=== PATIENT | male | born 1940 | race Caucasian/White ===

== ENCOUNTER 2016-04-23 16:16 | Inpatient (IN) | payer MEDICARE, OTHER ==
[~2016-04-23] VITALS: Ht 175.3 cm; Wt 77.1 kg
[~2016-04-23 16:16] MED LIST: BAYER ASPIRIN325 MG PO; BENICAR HCT 20-1 TA1 PO; BETAPACE 80 MG80 MG PO; COZAAR100 MG PO; FISH OIL 1,2001 CA1 PO; JANUVIA100 MG PO; LOVAZA1 G PO; LUNESTA3 MG PO; METAMUCIL1042 GM PO; MICARDIS80 MG PO; MIRALAX17 GM PO; MULTI-DAY VITAM1 TAB PO; NITROSTAT0.4 MG SL; ONGLYZA5 MG PO; PLAVIX75 MG PO; PRAVACHOL40 MG PO; PREVACID30 MG PO; PROTONIX40 MG PO; VALTREX1000 MG PO; VIAGRA100 MG PO; VITAMIN D5000 UNIT PO; ZANTAC150 MG PO; ZANTAC300 MG PO; [UNRECOGNIZED DRUG - OTHER] PO
--- NOTE | 2016-04-23 17:40 | NUR ---
RECEIVED TO ROOM 2217 VIA . ORIENTED TO ROOM AND CALL LIGHT SYSTEM. CALL LIGHT SYSTEM IN REACH. FAMILY IN ROOM.
[2016-04-23 17:46] VITALS: BP 177/107
[2016-04-23] MEDS ORDERED: NORVASC5 MG PO (17:53)
--- NOTE | 2016-04-23 18:09 | NUR ---
IV TO LEFT WRIST WITH 20 GA X1 STICK PER MARIANGEL JOYNER.
--- NOTE | 2016-04-23 18:30 | NUR ---
NS INITIATED @ 125 CC/HR VIA PUMP TO LEFT WRIST. DILAUDID VESSEL SCRAPPER INITIATED. BENADRYL SIVP. SCDs APPLIED TO BLE PER ORDER. CALL LIGHT IN REACH. WILL CONTINUE WITH PLAN OF CARE.
[2016-04-23 19:02] VITALS: Ht 175.3 cm; Wt 77.1 kg
[2016-04-23 19:03] LABS: ALBUMIN 2.5 g/dL (3.4-5.0); ALKALINE PHOSPHATASE 370 U/L (46-116); ALT (SGPT) 421 U/L (10-68); CALC OSMOLALITY 275 mosm/kg (275-300); CALCIUM 8.3 mg/dL (8.5-10.1); CHLORIDE - SERUM 99 mmol/L (98-107); CREATININE - SERUM 0.7 mg/dL (0.6-1.3); PROTEIN - SERUM 6.4 g/dL (6.4-8.2); SODIUM 135 mmol/L (136-145); UREA NITROGEN 20 mg/dL (7-18); eGFR NON AFRICAN AMERICAN > 90 mL/min (90-120)
[2016-04-23 19:11] LABS: GLUCOSE 154 mg/dL (74-106)
--- NOTE | 2016-04-23 19:26 | NUR ---
patient is a direct admit from home. patient is alert and oriented. patient denies pain but is itching. bed is low call light is in reach. assessment is in flowsheet. patient is accompanied by wift at bedside.
--- NOTE | 2016-04-23 19:38 | NUR ---
TO RADIOLOGY FOR CT SCAN VIA .
[2016-04-23 21:00] VITALS: BP 154/74
[2016-04-24 01:00] VITALS: BP 135/82
--- NOTE | 2016-04-24 04:15 | NUR ---
RESTING WITH EYES CLOSED, RESP WITH EASE, JAUNDICED IN COLOR, NO DISTRESS NOTED, SR'S UP , CL IN REACH
[2016-04-24 05:57] LABS: BASOPHILS 0.7 % (0.0-2.0); EOSINOPHILS 1.7 % (0-7); HEMATOCRIT 29.8 % (42.0-54.0); HEMOGLOBIN 10.3 g/dL (13.5-17.5); IMMATURE GRANULOCYTES 0.7 % (0-5); LYMPHOCYTES 34.4 % (15-50); MCH 30.6 pg (26.0-34.0); MCHC 34.6 g/dL (31.0-37.0); MCV 88.4 fL (80.0-100.0); MEAN PLATELET VOLUME 11.3 fL (7.4-10.4); MONOCYTES 16.2 % (2-11); NEUTROPHILS 46.3 % (40-80); RBC 3.37 10x6/uL (4.20-6.10); RDW 16.1 % (11.5-14.5); WBC 5.8 10x3/uL (4.8-10.8)
[2016-04-24 06:15] LABS: PLATELET COUNT 273 10x3/uL (130-400)
[2016-04-24 06:55] LABS: ALKALINE PHOSPHATASE 273 U/L (46-116); ALT (SGPT) 319 U/L (10-68); AMYLASE - SERUM 28 U/L (25-115); CALC OSMOLALITY 270 mosm/kg (275-300); CALCIUM 7.4 mg/dL (8.5-10.1); CARBON DIOXIDE 24.4 mmol/L (21.0-32.0); CHLORIDE - SERUM 102 mmol/L (98-107); CREATININE - SERUM 0.8 mg/dL (0.6-1.3); GLUCOSE 115 mg/dL (74-106); LIPASE 64 U/L (73-393); PRE-ALBUMIN 8.3 mg/dL (18.0-35.7); PROTEIN - SERUM 5.5 g/dL (6.4-8.2); SODIUM 134 mmol/L (136-145); UREA NITROGEN 17 mg/dL (7-18); eGFR NON AFRICAN AMERICAN > 90 mL/min (90-120)
[2016-04-24 06:58] LABS: ALBUMIN 1.8 g/dL (3.4-5.0)
--- NOTE | 2016-04-24 07:30 | NUR ---
REPORT RECEIVED FROM SEALANT MIXER NURSE. CALL LIGHT IN REACH.
--- NOTE | 2016-04-24 08:09 | NUR ---
ASSESSMENT COMPLETED. BENADRYL 25 MG SIVP PER C/O ITCHING. REFUSES SCDs. IN ROOM. CALL LIGHT IN REACH. WILL CONTINUE WITH PLAN OF CARE.
[2016-04-24 08:19] VITALS: BP 156/76
--- NOTE | 2016-04-24 09:06 | NUR ---
ATARAX AND SOTALOL PO WITH SIP OF WATER.
[2016-04-24 09:23] LABS: BILIRUBIN - DIRECT 7.31 mg/dL (0.00-0.30); BILIRUBIN - INDIRECT 1.79 mg/dL (0.00-1.00); BILIRUBIN - TOTAL 9.1 mg/dL (0.2-1.3); C-REACTIVE PROTEIN 1.4 mg/dL (0.0-0.9)
--- NOTE | 2016-04-24 10:10 | NUR ---
PEPCID 40 MG SIVP PER ORDER. FAMILY IN ROOM. CALL LIGHT IN REACH .
--- NOTE | 2016-04-24 10:11 | NUR ---
Patient Name: RAISA JOYNER Admission Status: ER Accout number: [id number] Admission Date: 04-23-2016 : 1940 Admission Diagnosis: Attending: DEREK Current LOS: 1 Anticipated DC Date: 04-29-2016 Planned Disposition: Home or Self Care Primary Insurance: MEDICARE A & B Discharge Planning Comments: CM MET WITH PATIENT REGARDING D/C NEEDS AND PLANS. PATIENT STATED HE LIVES WITH HIS SPOUSE (DEMOND) AND SHE WILL DRIVE HIM HOME AT DISCHARGE. PATIENT STATED THERE ARE 2 STEPS W/O RAILS TO ENTER HOME AND NO STAIRS INSIDE. PATIENT STATED HIS PCP IS DR. Larry SALMERON AND USES [facility]. PATIENT HAS NEVER HAD HOME HEALTH BEFORE. CM WILL CONTINUE TO FOLLOW PATIENT WITH D/C NEEDS AND PLANS. PCP DR. Larry SALMERON [facility] ON [facility] [phone] DEMOND (SPOUSE) [phone] Veneer Drier Feeder: Anni Omer Is the patient Alert and Oriented? Yes 0 * How many steps to enter\exit or inside your home? 2 W/O RAIL 0 * PCP DR. Larry SALMERON 0 * Pharmacy [facility] [phone] * Preadmission Environment Home with Family 0 * ADLs Independent 0 * Equipment None 0 * List name and contact numbers for known caregivers / representatives who currently or will assist patient after discharge: DEMOND () [phone] * Community resources currently utilized None 0 * Additional services required to return to the preadmission environment? Yes 0 * Can the patient safely return to the preadmission environment? Yes 0 * Has this patient been hospitalized within the prior 30 days at any hospital? No 0 Grand Total: 0
--- NOTE | 2016-04-24 10:14 | NUR ---
REPORT RECEIVED FROM INTERACTIVE PROJECT MANAGER NURSE. CALL LIGHT IN REACH.
[2016-04-24 10:35] LABS: ERYTHROCYTE SEDIMENTATION RATE 62 mm/hr (0-20)
--- NOTE | 2016-04-24 10:55 | NUR ---
TO MRI VIA WC.
--- NOTE | 2016-04-24 12:21 | NUR ---
CREAM DUMPER INCREASED TO 0.4 MG WITH NO LOCKOUT.
[2016-04-24 12:27] VITALS: BP 144/74
--- NOTE | 2016-04-24 13:52 | NUR ---
ATARAX 25 MG PO GIVEN EARLY D/T PATIENT CONSTANTLY ITCHING.
--- NOTE | 2016-04-24 15:40 | NUR ---
NO NEEDS VOICED AT THIS TIME. CALL LIGHT IN REACH.
[2016-04-24 16:18] VITALS: BP 140/65
--- NOTE | 2016-04-24 17:56 | NUR ---
BENADRYL 50 MG PO PER C/O ITCHING.
--- NOTE | 2016-04-24 18:19 | NUR ---
PATIENT IS CURRENTLY STANDING UP AT BEDSIDE. ACCOMPANIED BY SEVERAL FAMILY/FRIENDS. PATIENT IS ALERT AND ORIENTED. DENIES ANY NEEDS AT THIS TIME. BED IS IN THE LOWEST POSITION. IV PATIENT.
[2016-04-24 18:30] LABS: INR 0.9 (0.85-1.17)
[2016-04-24 20:00] VITALS: BP 150/76
--- NOTE | 2016-04-24 20:00 | NUR ---
ASSESSMENT PER FLOWSHEET. IV PATENT LEFT WRIST OF NS AT 125CC'S/HR SITE CLEAR TRANSFER STATION ATTENDANT OF DILAUDID IN USE WITH SETTINGS AT 0.4MG Q10MIN NO L/O. FAMILY MEMBERS AT BEDSIDE. DENIES NEEDS.
--- NOTE | 2016-04-24 21:30 | NUR ---
MEDS GIVEN PER MAR.
[2016-04-24 21:44] LABS: % SATURATION 50 % (15-55); IRON 117 ug/dl (35-150); TOTAL IRON BIND CAPACITY 233 ug/dl (260-445); UNSAT IRON BIND CAPACITY 116 ug/dl (150-375)
[2016-04-24 21:58] LABS: THYROID STIMULATING HORMONE 1.48 uIU/mL (0.36-3.74)
[2016-04-25] VITALS: BP 124/63
--- NOTE | 2016-04-25 00:32 | NUR ---
EYES CLOSED RESPIRATIONS WITH EASE AND UNLABORED. DENIES NEEDS.
--- NOTE | 2016-04-25 02:25 | NUR ---
EYES CLOSED RESPIRATIONS WITH EASE AND UNLABORED.
[2016-04-25 04:00] VITALS: BP 151/79
--- NOTE | 2016-04-25 04:19 | NUR ---
RESTING QUIETLY DENIES NEEDS.
[2016-04-25 05:28] LABS: BASOPHILS 0.7 % (0.0-2.0); EOSINOPHILS 1.5 % (0-7); HEMATOCRIT 30.5 % (42.0-54.0); HEMOGLOBIN 10.4 g/dL (13.5-17.5); IMMATURE GRANULOCYTES 0.5 % (0-5); LYMPHOCYTES 35.6 % (15-50); MCH 30.3 pg (26.0-34.0); MCHC 34.1 g/dL (31.0-37.0); MCV 88.9 fL (80.0-100.0); MONOCYTES 14.3 % (2-11); NEUTROPHILS 47.4 % (40-80); PLATELET COUNT 265 10x3/uL (130-400); RBC 3.43 10x6/uL (4.20-6.10); RDW 16.3 % (11.5-14.5); WBC 5.5 10x3/uL (4.8-10.8)
[2016-04-25 05:39] LABS: INR 0.96 (0.85-1.17); PROTIME 12.6 SECONDS (11.6-15.0)
[2016-04-25 06:11] LABS: ALKALINE PHOSPHATASE 301 U/L (46-116); ALT (SGPT) 308 U/L (10-68); AMYLASE - SERUM 34 U/L (25-115); BILIRUBIN - TOTAL 9.36 mg/dL (0.2-1.3); CALC OSMOLALITY 270 mosm/kg (275-300); CARBON DIOXIDE 24.9 mmol/L (21.0-32.0); CHLORIDE - SERUM 103 mmol/L (98-107); CREATININE - SERUM 0.9 mg/dL (0.6-1.3); GLUCOSE 99 mg/dL (74-106); LIPASE 73 U/L (73-393); MAGNESIUM - SERUM 1.7 mg/dL (1.8-2.4); POTASSIUM - SERUM 3.4 mmol/L (3.5-5.1); PROTEIN - SERUM 5.3 g/dL (6.4-8.2); SODIUM 135 mmol/L (136-145); UREA NITROGEN 14 mg/dL (7-18); eGFR NON AFRICAN AMERICAN 88 mL/min (90-120)
--- NOTE | 2016-04-25 07:15 | NUR ---
REPORT RECEIVED FROM JUNIOR GRAPHIC DESIGNER NURSE. CALL LIGHT IN REACH.
[2016-04-25 07:57] VITALS: BP 141/77
--- NOTE | 2016-04-25 08:20 | NUR ---
ASSESSMENT COMPLETED. REFUSES SCDs. AM MEDS ADMINISTERED. CALL LIGHT IN REACH. WILL CONTINUE WITH PLAN OF CARE.
[2016-04-25 09:15] LABS: CEA 3.3 ng/mL (0.0-4.7)
--- NOTE | 2016-04-25 10:20 | NUR ---
NO NEEDS VOICED AT THIS TIME. CALL LIGHT IN REACH.
[2016-04-25 12:17] LABS: HEPATITIS C ANTIBODY <0.1 (0.0-0.9)
--- NOTE | 2016-04-25 12:26 | NUR ---
QUESTRAN MIXED IN APPLE JUICE AND BENADRYL PO PER C/O ITCHING. CALL LIGHT IN REACH.
[2016-04-25 12:31] VITALS: BP 148/75
--- NOTE | 2016-04-25 12:59 | NUR ---
QUIET IN ROOM AT PRESENT DENIES ANY NEEDS AT THIS TIME AT BEDSIDE.
[2016-04-25] MEDS ORDERED: HYDROXYZINE HCL50 MG PO (15:24)
[2016-04-25] MEDS ORDERED: QUESTRAN LIG1 PACKET PO (15:24)
[2016-04-25 15:57] VITALS: BP 150/73
--- NOTE | 2016-04-25 16:17 | NUR ---
04/25/2016 16:17 DCP: Discharge Planning Patient Name: RAISA JOYNER Encounter No: [id number] : 1940 Primary Insurance: MEDICARE A & B Anticipated DC Date: 04-29-2016 Planned Disposition: Home or Self Care DCP follow-up note: DC order rec'd. Patient and family in agreement with discharge plan. No changes to plan. Case management will follow and assist as needed. Estelle Millard
--- NOTE | 2016-04-25 17:27 | NUR ---
IV DC'D WITH TIP INTACT
--- NOTE | 2016-04-25 18:40 | NUR ---
DC'D TO VEHICLE VIA WC WITH AND SON.
[2016-04-26 09:15] LABS: ANA REFLEX - DIRECT Negative (Negative)
[2016-05-01 10:20] LABS: CMV QUANT DNA PCR (PLASMA) Negative (Negative)
[2016-05-02 12:20] LABS: SMOOTH MUSCLE ABS (ACTIN) 9 Units (0-19)
[2016-05-02 13:16] LABS: EHRLICHIA CHAFF IGG Negative (Neg:<1:64); EHRLICHIA CHAFF IGM Negative (Neg:<1:20); HGE IGG TITER Negative (Neg:<1:64); HGE IGM TITER Negative (Neg:<1:20)
--- NOTE | 2016-06-19 10:17 | DS ---
PATIENT:RAISA JOYNER :[birth year] MEDICAL RECORD: [id number] DISCHARGE SUMMARY ADMISSION DATE: 04/23/16 DISCHARGE DATE: 04/25/16 DIAGNOSES: Hepatitis of unknown etiology. HOSPITAL COURSE: The patient was admitted. We were fearful the patient either had a common bile duct stone or had a pancreatic malignancy. A CT scan and MRCP were unrevealing with regard to any type of pancreatic mass. The patient did not have biliary ductal dilatation. Dr. Sandoval was asked to see the patient in consultation. She has ordered a number of lab tests. At the time of dismissal, the patient is still having significant itching. He is being dismissed home on Atarax as well as Questran Light. He is going to be following up with Dr. Sandoval in the office. On Friday, she will determine whether the patient requires liver biopsy or not. TRANSINT:[id number] Voice Confirmation ID: [id number] DOCUMENT ID: [id number] NICANOR MEZA MD at 1017 CC: KATE SALMERON MD [id number] DICTATION DATE: 04/25/16 1537 COATING AND BAKING OPERATOR: 04/25/160 DIS IN 04/25/16 [place] [id number] [place] [id number]
--- NOTE | 2016-06-19 10:17 | HP ---
PATIENT: RAISA JOYNER MEDICAL RECORD: [id number] ACCOUNT: [id number] LOCATION:D.[facility] : [birth year] ADMISSION DATE: 04/23/16 HISTORY AND PHYSICAL EXAMINATION Addendum CHIEF COMPLAINT: Itching. The patient has pruritus due to an elevated bilirubin. Upon arrival here, his bilirubin was 13. He reportedly has had a rise in his bilirubin over the past week. He had increasing pruritus as well. He has had some weight loss. No abdominal pain. I was concerned about pancreatic malignancy. Upon arrival here, we obtained a CT scan with IV and oral contrast with thin cuts through the pancreas. It revealed no biliary ductal dilatation, no evidence of a pancreatic mass. The pancreas was largely fatty replaced. The patient then underwent an MRCP. This revealed no pancreatic mass. No ductal dilatation. Dr. Sandoval was consulted. I have discussed this case personally with her. I personally reviewed the MRCP images. I personally reviewed the CT images and reviewed the CT images with Dr. Jose Hahn. Our current thoughts are that perhaps he passed a stone from his common bile duct; however, he was having no pain and he had a nontender abdomen. Alternatively, he may have either a viral, autoimmune or drug-induced hepatitis. Dr. Sandoval is working this up. If his bilirubin continues to drop, then we may consider dismissing him home tomorrow. This is a history and physical addendum. For the additional portion of the history and physical, including the past medical and surgical history, current medications, allergies and social history, please see the chart. REVIEW OF SYSTEMS: No nausea, no vomiting, no fever, no chills. Positive for pruritus, no abdominal pain. He has had some weight loss, no chest pain, no shortness of breath, no headache. Review of systems is negative other than as is described above. PHYSICAL EXAMINATION: GENERAL: The patient does not appear acutely ill. He does not appear chronically ill. VITAL SIGNS: Reviewed. HEAD: External ears appear normal. EYES: Extraocular movements are intact. Scleral icterus is present. NECK: Trachea is midline. CHEST: No intercostal retractions. PULMONARY: Nonlabored, no stridor. ABDOMEN: Nontender. EXTREMITIES: No peripheral cyanosis. INTEGUMENT: No rash. He does have jaundice. PSYCHIATRIC: Normal affect. NEUROLOGIC: Nonfocal, no lethargy. The patient answers questions appropriately, moves all extremities well. BACK: No thoracic kyphosis. LYMPHATICS: No lymphangitic streaking of the exposed extremities. IMPRESSION: Elevated bilirubin now dropping of uncertain etiology as elevation HISTORY AND PHYSICAL [id number] RAISA JOYNER of other LFTs, but not marked degree of the hyperbilirubinemia. PLAN: Further workup of his hepatic disease. This can be done as an outpatient if the patient's condition continues to improve. TRANSINT:[id number] Voice Confirmation ID: [id number] DOCUMENT ID: [id number] NICANOR MEZA MD at 1017 CC: KATE SALMERON MD [id number] DICTATION DATE: 04/25/16 1224 DIGITAL SALES DIRECTOR: 04/25/16 1329 DIS IN 04/25/16 [facility] [address] [place] [address]
== END 2016-04-25 18:40 | disposition home or self-care (01) | DRG 443 ==
LOC: D.ER 16:16 → EDSTATUS 17:01 → D.MS 17:08
PROVIDERS: Internal Medicine Gastroenterology; ADMIT Surgery
DX: K75.9 Inflammatory liver disease, unspecified (principal); D64.9 Anemia, unspecified; L29.9 Pruritus, unspecified

== ENCOUNTER → 2016-04-29 08:37 | Outpatient (CLI) | payer MEDICARE, OTHER ==
[~2016-04-29 08:37] MED LIST changes: +HYDROXYZINE HCL50 MG PO; +METAMUCIL PACKE1 PKT PO; +NORVASC5 MG PO; +QUESTRAN LIG1 PACKET PO
[2016-04-29 09:55] LABS: ALBUMIN 2.4 g/dL (3.4-5.0); BILIRUBIN - DIRECT 3.83 mg/dL (0.00-0.30); BILIRUBIN - INDIRECT 1.07 mg/dL (0.00-1.00); BILIRUBIN - TOTAL 4.9 mg/dL (0.2-1.3); PROTEIN - SERUM 7.3 g/dL (6.4-8.2)
== END | disposition home or self-care (01) ==
LOC: D.LAB 08:37
PROVIDERS: Internal Medicine Gastroenterology
DX: R79.89 Other specified abnormal findings of blood chemistry (principal)

== ENCOUNTER → 2016-05-06 09:48 | Outpatient (CLI) | payer MEDICARE, OTHER ==
[2016-05-06 10:46] LABS: ALBUMIN 2.5 g/dL (3.4-5.0); BILIRUBIN - DIRECT 2.22 mg/dL (0.00-0.30); BILIRUBIN - INDIRECT 0.4 mg/dL (0.00-1.00); BILIRUBIN - TOTAL 2.62 mg/dL (0.2-1.3); PROTEIN - SERUM 6.7 g/dL (6.4-8.2)
== END | disposition home or self-care (01) ==
LOC: D.LAB 09:48
PROVIDERS: Internal Medicine Gastroenterology
DX: K22.70 Barrett's esophagus without dysplasia (principal); R97.8 Other abnormal tumor markers; R74.8 Abnormal levels of other serum enzymes

== ENCOUNTER 2016-05-13 10:55 | Outpatient (CLI) | payer MEDICARE, OTHER ==
[~2016-05-13 10:55] MED LIST changes: -METAMUCIL PACKE1 PKT PO
[2016-05-13] MEDS ORDERED: METAMUCIL PACKE1 PKT PO (12:05)
--- NOTE | 2016-05-13 13:40 | NUR ---
1315-RECEIVED PT FROM GI LAB AWAKE AND ALERT VSS NO DISTRESS ON ROOM AIR, DENIES ANY N/V WILL CALL LIGHT IN REACH AND FAMILY AT BEDSIDE
[2016-05-13 14:12] LABS: ALBUMIN 3.1 g/dL (3.4-5.0); BILIRUBIN - DIRECT 1.45 mg/dL (0.00-0.30); BILIRUBIN - INDIRECT 0.45 mg/dL (0.00-1.00); BILIRUBIN - TOTAL 1.9 mg/dL (0.2-1.3); PROTEIN - SERUM 7.4 g/dL (6.4-8.2)
--- NOTE | 2016-05-13 14:23 | NUR ---
1415-PT TOLERATED TRAY WELL AND IV DISCONTINUED WITH CATHETER INTACT. PT GETTING DRESSED AND DOING WELL.
--- NOTE | 2016-05-13 14:33 | NUR ---
1430-DISCHARGE INSTRUCTIONS GIVEN AND WENT OVER WITH PATIENT. PT STATES UNDERSTANDING AND DENIES ANY NEEDS OR CONCERNS AT THIS TIME. PT DISCHARGED HOME IN STABLE CONDITION WITH A PERSCRIPTION FOR PANTOPRAZOLE. PT ESCORTED OUT IN STABLE CONDITION WITH WRITTEN INSTRUCTIONS IN HAND
--- NOTE | 2016-06-19 11:24 | OP ---
PATIENT NAME: RAISA JOYNER MEDICAL RECORD: [id number] :44 [facility] DATE: SURGEON: ADELA SANTANA MD DATE OF OPERATION: 05/13/2016 PROCEDURE: EGD with biopsy. SALVAGER HELPER: Adela Santana MD SCOPE: Olympus video gastroscope. MEDICATIONS: Per TIVA anesthesia. INDICATION FOR TIVA: Hypertension, intermittent atrial fibrillation, type 2 diabetes. The patient has had multiple stents placed in the past with Dr. Shabnam Becerra. Her medication for the procedure was 150 mg IV push of propofol and O2 4 liters. INDICATION FOR THE PROCEDURE: Gordon's esophagus, history of gastritis and epigastric pain. The patient states he is having no difficulties at this time with gastroesophageal reflux disease and this is a surveillance procedure to monitor Gordon's esophagus. FINDINGS: Informed consent was given. The patient was made comfortable with the above medications. After reaching an adequate level of sedation by slow IV push, the patient was placed on his left side. The endoscope was then advanced under direct visualization through the posterior pharyngeal area and advanced to the distal esophagus. On initial presentation, the gastroesophageal junction did appear to be normal, but on very close inspection, a minimal amount of inflammation was noted, which possibly could be short segment Gordon esophagus and biopsies were obtained. On entering the stomach, it should be noted that a very large hiatal hernia was seen and this was thoroughly explored with only mild inflammation present. With advancement of the scope to the antral area, only mild inflammation was noted. Biopsies were obtained. The duodenal bulb to the second portion had minimal scattered inflammation with bile present. Biopsies were taken. The scope was then withdrawn. IMPRESSION: 1. 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 2. Large hiatal hernia. 3. Mild antritis, biopsied. 4. Mild duodenitis, biopsied. PLAN: 1. Until we check thoroughly with the path report, we will continue pantoprazole at a dose of 40 mg p.o. every day. For reflux precautions, the patient should avoid chocolate, tomatoes, citrus, caffeine, fatty foods, peppermint, not eat late at night and sit up for a couple hours after meals. Of note, this hiatal hernia could be a problem in the future. Dr. Sandoval will follow the patient in her clinic and may decide to do an upper GI if she feels that the patient is having some symptomatic problems with refluxing. 2. Caution with anti-inflammatory drugs. Return to clinic in 3 weeks to Joycelyn OPERATIVE REPORT [id number] RAISA JOYNER and Dr. Sandoval's clinic. TRANSINT:[id number] Voice Confirmation ID: [id number] DOCUMENT ID: [id number] ADELA SANTANA MD at 1124 CC: JUAN SANDOVAL MD, KATE SALMERON MD and SHABNAM BECERRA [id number] DICTATION DATE: 05/13/16 1307 FORM LAYER: 05/13/16 1327 DEP CLI 05/13/[address] [address]
== END 2016-05-13 14:30 | disposition home or self-care (01) ==
LOC: D.OPS 10:55 → D.LAB 10:55 → D.OPS 14:30
PROVIDERS: Internal Medicine Gastroenterology
DX: K21.9 Gastro-esophageal reflux disease without esophagitis (principal); K44.9 Diaphragmatic hernia without obstruction or gangrene; K29.80 Duodenitis without bleeding

== ENCOUNTER → 2016-05-27 12:29 | Outpatient (CLI) | payer MEDICARE, OTHER ==
[~2016-05-27 12:29] MED LIST changes: +ASPIRIN81 MG PO; +METAMUCIL PACKE1 PKT PO
[2016-05-27 13:18] LABS: ALBUMIN 3.6 g/dL (3.4-5.0); BILIRUBIN - DIRECT 0.8 mg/dL (0.00-0.30); BILIRUBIN - INDIRECT 0.3 mg/dL (0.00-1.00); BILIRUBIN - TOTAL 1.1 mg/dL (0.2-1.3)
== END | disposition home or self-care (01) ==
LOC: D.LAB 10:00
PROVIDERS: Internal Medicine Gastroenterology
DX: R79.89 Other specified abnormal findings of blood chemistry (principal)

== ENCOUNTER → 2016-06-13 12:18 | Outpatient (CLI) | payer MEDICARE, OTHER ==
[2016-06-13 13:02] LABS: ALBUMIN 3.6 g/dL (3.4-5.0); BILIRUBIN - DIRECT 0.39 mg/dL (0.00-0.30); BILIRUBIN - INDIRECT 0.3 mg/dL (0.00-1.00); BILIRUBIN - TOTAL 0.69 mg/dL (0.2-1.3); PROTEIN - SERUM 7.7 g/dL (6.4-8.2)
== END | disposition home or self-care (01) ==
LOC: D.LAB 11:00
PROVIDERS: Internal Medicine Gastroenterology
DX: R94.5 Abnormal results of liver function studies (principal)

== ENCOUNTER 2016-07-15 06:36 | Day surgery (SDC) | payer MEDICARE, OTHER ==
[~2016-07-15] VITALS: Ht 175.3 cm; Wt 79.1 kg
[~2016-07-15 06:36] MED LIST changes: -ASPIRIN81 MG PO
[2016-07-15 07:29] VITALS: BP 131/74; Ht 175.3 cm; Wt 79.1 kg
[2016-07-15 07:33] LABS: BASOPHILS 0.9 % (0.0-2.0); EOSINOPHILS 4.4 % (0-7); HEMATOCRIT 41.4 % (42.0-54.0); HEMOGLOBIN 14.1 g/dL (13.5-17.5); IMMATURE GRANULOCYTES 0.2 % (0-5); LYMPHOCYTES 32.7 % (15-50); MCH 31.7 pg (26.0-34.0); MCHC 34.1 g/dL (31.0-37.0); MEAN PLATELET VOLUME 10.7 fL (7.4-10.4); MONOCYTES 14.9 % (2-11); NEUTROPHILS 46.9 % (40-80); RBC 4.45 10x6/uL (4.20-6.10); RDW 12.6 % (11.5-14.5); WBC 5.5 10x3/uL (4.8-10.8)
[2016-07-15 07:36] LABS: PLATELET COUNT 184 10x3/uL (130-400)
[2016-07-15 07:42] LABS: ANION GAP 12.1 mmol/L (8-16); CALCIUM 8.7 mg/dL (8.5-10.1); CARBON DIOXIDE 27.5 mmol/L (21.0-32.0); CREATININE - SERUM 1.1 mg/dL (0.6-1.3); POTASSIUM - SERUM 3.6 mmol/L (3.5-5.1)
--- NOTE | 2016-07-15 16:25 | NUR ---
1040 PT DRESSED, AWAKE & ALERT. GVIEN DISCAHRGE INSTRUCTIONS INCLUDING: MED REC & D/C INSTRCUTION SHEET POST ENDOSCOPIC PROCEDURES. PT VOICED UNDERSTANDING. TO PRIVATE CAR PER WHEELCHAIR BY VOLUNTEER. HOME WITH , DEMOND JOYNER. Ferny MARQUEZ R.N.
--- NOTE | 2016-07-16 12:03 | OP ---
PATIENT NAME: DRU JOYNER MEDICAL RECORD: [id number] :44 LOCATION:[facility] ADMISSION DATE: SURGEON: MARCIO AGARWAL DO DATE OF OPERATION: 07/15/2016 SCOPE: Olympus video pediatric colonoscope. MEDICATIONS: Propofol 150 mg IV per anesthesia. INDICATIONS FOR TIVA: Significant coronary artery disease with past history of coronary artery stated placement as well as hypertension and diabetes. INDICATIONS FOR PROCEDURE: Screening colonoscopy. FINDINGS: Informed consent was given. The patient was made comfortable with the above medication. After reaching an adequate level of sedation by slow IV push, the patient was placed on his left side. A digital rectal examination was performed and revealed a slightly enlarged prostate, but no nodules or abnormalities palpated on examination. Scope was then advanced under direct visualization through the rectum to the terminal ileum. Scope was then withdrawn slowly over 6 minutes total. The mucosa was normal throughout. There was a single diverticulum visualized in the descending colon. The remainder of the examination was normal. The scope was withdrawn from the patient. The patient tolerated the procedure well and there were no complications. The prep was good. IMPRESSION: Diverticulosis, mild severity. PLAN AND RECOMMENDATIONS: A repeat colonoscopy for colon cancer screening purposes could be considered at the age of 82. Otherwise, no further colonoscopies are necessary. Dru has had no polyps in his past to his knowledge and is clear on this examination making him low risk for further development of polyps and subsequent colon cancer. He also has significant comorbidities with his coronary artery disease making him a little high risk for sedation. TRANSINT:[id number] Voice Confirmation ID: [id number] DOCUMENT ID: [id number] MARCIO AGARWAL DO at 1203 CC: [id number] DICTATION DATE: 07/15/16 0841 BINDING FOLDER MACHINE: 07/15/16 0934 [facility] 07/15/16 [facility] [address] [place] [id number]
== END 2016-07-15 10:40 | disposition home or self-care (01) ==
LOC: D.OPS 06:36
PROVIDERS: Anesthesiology
DX: Z12.11 Encounter for screening for malignant neoplasm of colon (principal); K57.30 Diverticulosis of large intestine without perforation or abscess without bleeding; I25.10 Atherosclerotic heart disease of native coronary artery without angina pectoris; Z95.5 Presence of coronary angioplasty implant and graft; E11.9 Type 2 diabetes mellitus without complications; I10 Essential (primary) hypertension

== ENCOUNTER 2016-08-13 14:03 | Outpatient (CLI) | payer MEDICARE, OTHER ==
[~2016-08-13] VITALS: Ht 175.3 cm; Wt 77.7 kg
--- NOTE | ~2016-08-13 | HEMODYNAMI ---
PATIENT:RAISA JOYNER MEDICAL RECORD: [id number] : 44 LOCATION:[facility] D.2104 ADMISSION DATE: 08/13/16 Generatedon:08/14/20168:56 Patient name: RAISA JOYNER Patient #: [id number] : 1940 Date of study: 08/14/2016 Page: Of Hemodynamic Procedure Report Patient Data Patient Demographics Procedure consent was obtained First Name: RAISA Gender: Male Last Name: ANYA : 1940 [facility] Initial: LUKE Age: 76 year(s) Patient #: [id number] Race: SSN: [id number] Additional ID: [id number] Contact details Address: [address] [place] [address] State: [place] City: [place] Zip code: [address] Past Medical History Allergies Allergen Reaction Date Comments Reported Codeine 08/13/2016 Other allergy 08/13/2016 AMBIEN Admission Admission Data Admission Date: 08/13/2016 Admission Time: 14:03 Room #: D.2104 Lab Results Lab Result Date: 08/13/2016 Lab Result Time: 0:00 Biochemistry Name Units Result Min Max BUN mg/dl 19 --(----)*- 7 18 Creatinine mg/dl 1.2 --(---*)-- 0.6 1.3 CBC Name Units Result Min Max Hemoglobin g/dl 13.7 --(*---)-- 13.5 17.5 Procedure Procedure Types Cath Procedure PCI Procedure Coronary Stent Initial Miscellaneous Procedures Moderate Sedation up to 30 minutes Procedure Description Procedure Date Procedure Date: 08/14/2016 Procedure Start Time: 8:39 Procedure Staff Name Function Mary Lou Nuñez RT Monitor Jeffrey Rivera RN Nurse Dada Becerra MD Performing Physician Micheal Avilez RT Scrub Procedure Data Cath Procedure Fluoroscopy Diagnostic fluoroscopy Total fluoroscopy Time: 4.6 time: 4.6 min min Diagnostic fluoroscopy Total fluoroscopy dose: 252 dose: 252 mGy mGy Contrast Material Contrast Material Type Amount (ml) Isovue 300 42 Entry Location Entry Primary Successful Side Size Upsize Upsize Entry Closure Succes sful Closure Location (Fr) 1 (Fr) 2 (Fr) Remarks Device Remarks Femoral Right 7 Fr Exoseal artery Short Estimated blood loss: 10 ml Procedure Complications No complications Procedure Medications Medication Administration Route Dosage Oxygen 10 l/min Heparin Flush Bag added to field 2 bags (1000units/500ml NS) 0.9% NaCl I.V. 100 ml/hr Fentanyl I.V. 50 mcg Versed I.V. 1 mg Fentanyl I.V. 50 mcg Versed I.V. 1 mg Fentanyl I.V. 50 mcg Heparin Bolus I.V. 4000 units Hemodynamics Rest HGB: 13.7 (g/dl) Heart Rate: 50 (bpm) Snapshots Pre Cath Intra NCS Post Cath Vital Signs Time Heart Resp SPO2 NIBP Rhythm Pain Sedation Rate (ipm) (%) (mmHg) Status Level (bpm) 8:04:30 50 18 100 116/72(85) NSR 0 (11) 10(A) , No pain 8:08:42 50 18 100 113/68(86) NSR 0 (11) 10(A) , No pain 8:12:52 50 18 100 97/55(70) NSR 0 (11) 10(A) , No pain 8:16:58 54 16 97 95/60(74) NSR 0 (11) 10(A) , No pain 8:21:01 56 16 97 97/60(76) NSR 0 (11) 10(A) , No pain 8:25:07 57 16 98 90/55(69) NSR 0 (11) 10(A) , No pain 8:29:11 58 17 98 97/52(66) NSR 0 (11) 10(A) , No pain 8:33:17 58 18 98 92/56(71) NSR 0 (11) 10(A) , No pain 8:37:24 58 17 99 93/48(66) NSR 0 (11) 10(A) , No pain 8:41:32 56 16 98 88/47(66) NSR 0 (11) 9(A) , No pain 8:45:34 61 18 96 89/54(76) NSR 0 (11) 9(A) , No pain 8:49:36 63 19 96 93/55(71) NSR 0 (11) 9(A) , No pain 8:53:39 62 18 96 90/55(72) NSR 0 (11) 9(A) , No pain Medications Time Medication Route Dose Verified Delivered Reason Notes Effectiveness by by 8:03:49 Oxygen Simple 10 Jeffrey Jeffrey Per physician Mask l/min Miguel Rivera RN RN 8:03:59 Heparin Flush added 2 Jeffrey Jeffrey used for Bag to bags Miguel Rivera RN procedure (1000units/500ml field RN NS) 8:04:07 0.9% NaCl I.V. 100 Jeffrey Jeffrey Per physician ml/hr Miguel Rivera RN RN 8:35:18 Fentanyl I.V. 50 Jeffrey Jeffrey for sedation mcg Miguel Rivera RN RN 8:35:25 Versed I.V. 1 mg Jeffrey Jeffrey for sedation Miguel Rivera RN RN 8:38:29 Fentanyl I.V. 50 Jeffrey Jeffrey for sedation mcg Miguel Rivera RN RN 8:38:33 Versed I.V. 1 mg Jeffrey Jeffrey for sedation Miguel Rivera RN RN 8:41:45 Fentanyl I.V. 50 Jeffrey Jeffrey for sedation mcg Miguel Rivera RN RN 8:41:54 Heparin Bolus I.V. 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 Start room use. 7:45:39 Time tracking: Regular hours 7:45:43 Plan of Care:Hemodynamics will remain stable., Cardiac rhythm will remain stable., Comfort level will be maintained., Respiratory function will remain adequate., Patient/ family verbilizes understanding of procedure., Procedure tolerated without complication., Recovers from procedure without complications.. 7:55:24 Patient received from PCU to CCL 2 Alert and oriented. Tansferred to table in Supine position. 7:55:25 Correct patient and procedure confirmed by team. 7:55:25 Warm blankets applied, and ramos hugger turned on for patient comfort. 7:55:27 Signed procedure consent form obtained from patient. 7:55:28 ECG and BP/O2 sat monitors applied to patient. 8:03:18 Vital chart was started 8:03:49 Oxygen 10 l/min Simple Mask was administered by Jeffrey Rivera RN; Per physician; 8:03:59 Heparin Flush Bag (1000units/500ml NS) 2 bags added to field was administered by Jeffrey Rivera RN; used for procedure; 8:04:07 0.9% NaCl 100 ml/hr I.V. was administered by Jeffrey Rivera RN; Per physician; 8:05:23 Baseline sample Acquired. 8:05:29 Rhythm: sinus bradycardia 8:05:31 Full Disclosure recording started 8:05:39 H&P Date Dictated: 08/13/2016 Within 30 days and on chart., H&P Addendum completed by physician on day of procedure. (MUST COMPLETE FOR ALL OUTPATIENTS). 8:05:40 Pre-procedure instructions explained to patient. 8:05:41 Pre-op teaching completed and patient verbalized understanding. 8:05:43 Family in patients room. 8:05:45 Patient NPO since Midnight. 8:07:45 Is the patient allergic to Iodine/contrast media? No. 8:07:46 Is patient on blood thinner?Yes 8:08:45 ACC The patient was administered the following blood thiners within the last 24 hours: ACCAspirin, ACCPlavix 8:08:48 Patient diabetic? Yes. 8:09:35 If diabetic: On Metformin? No 8:09:38 Previous problem with sedation/anesthesia? No ? 8:09:41 Snore? Yes 8:09:42 Sleep apnea? No 8:09:44 Deviated septum? No 8:09:45 Opens mouth fully? Yes 8:09:46 Sticks out tongue? Yes 8:09:48 Airway obstruction? No ? 8:09:50 Dentures? No ? 8:09:53 Pre procedure: left dorsailis pedis pulse 2+ Normal; easily identifiable; not easily obliterated 8:09:58 Patient pain scale 0/10 ?. 8:10:06 IV patent on arrival in left hand with 0.9% NaCl at KVO. 8:10:44 Lab results completed and on chart. 8:10:49 Left groin area was prepped with chlora-prep and draped in sterile fashion 8:10:50 Sharps counted by scrub and verified by R.N. 8:10:50 Alarms reviewed by Amanuel Chong. 8:10:56 Use device set Femoral PCI 8:10:57 Acist Syringe opened to sterile field. 8:10:58 Bag Decanter opened to sterile field. 8:10:58 Acist Hand Control opened to sterile field. 8:10:59 Medline Cath Pack opened to sterile field. 8:11:00 St Wu 260cm J .035 wire opened to sterile field. 8:11:01 Acist Manifold opened to sterile field. 8:11:01 Merit BasixCompak Inflation Kit opened to sterile field. 8:11:03 Tegaderm 4 x 4 opened to sterile field. 8:11:23 Terumo 7Fr Window Rock Sheath opened to sterile field. 8:11:44 Humphreys Whisper J 300cm 0.014 guide wire opened to sterile field. 8:18:06 Zero performed for pressure channel P1 8:29:46 Zero performed for pressure channel P1 8:34:39 Final Timeout: patient, procedure, and site verified with staff and physician. All members of the team are in agreement. 8:34:41 Left groin site verified by team. 8:34:44 Physical assessment completed. ASA score P 2 - A patient with mild systemic disease as per Dada Becerra MD. 8:34:47 Sedation plan: IV Moderate Sedation Versed, Fentanyl 8:35:18 Fentanyl 50 mcg I.V. was administered by Jeffrey Rivera RN; for sedation; 8:35:25 Versed 1 mg I.V. was administered by Jeffrey Rivera RN; for sedation; 8:36:41 Medtronic Launcher 6Fr AR 2.0 SH guide catheter opened to sterile field. 8:38:29 Fentanyl 50 mcg I.V. was administered by Jeffrey Rivera RN; for sedation; 8:38:33 Versed 1 mg I.V. was administered by Jeffrey Rivera RN; for sedation; 8:38:41 Procedure started. 8:39:12 Local anesthetic to left femerol artery with Lidocaine 2% by Dada Becerra MD.INITIAL ACCESS ONLY 8:40:05 A 7 Fr Short sheath was inserted into the Right Femoral artery 8:40:25 6 Fr AR 2.0 SH guide catheter was inserted over the wire 8:41:38 WHISPER wire advanced. 8:41:45 Fentanyl 50 mcg I.V. was administered by Jeffrey Rivera RN; for sedation; 8:41:54 Heparin Bolus 4000 units I.V. was administered by Jeffrey Rivera RN; for anticoagulation; 8:42:53 Wire removed. unable to get back-up support 8:43:02 Carson Sci Choice PT Extra Support J 300cm .014 gu opened to sterile field. 8:43:16 The Medtronic Resolute 4.0 X 18 stent was advanced then removed because of failure to cross lesion 8:44:05 Choice PT ES wire advanced. 8:44:51 The Carson Sci [place] 3.5 X 15 balloon was advanced and then removed because of failure to cross lesion 8:44:54 Wire removed. 8:45:00 Guide Catheter removed. unable to get back-up support 8:45:22 Medtronic Launcher 7Fr HS II SH guide catheter opened to sterile field. 8:45:33 7 Fr HS II SH guide catheter was inserted over the wire 8:46:53 Choice PT ES wire advanced. 8:47:11 Inflation number: 1 A Carson Sci [place] 3.5 X 15 balloon was prepped and advanced across the Prox RCA, then inflated to 21 KHANG for 0:12 (min:sec). 8:47:28 Balloon removed over the wire. 8:49:37 Inflation Number: 2 A Medtronic Resolute 4.0 X 18 stent was prepped and advanced across the Prox RCA. The stent was deployed at 17 KHANG for 0:09 (min:sec). 8:49:52 Stent catheter was removed intact over wire. 8:49:53 Guide catheter removed. 8:49:53 Wire removed. 8:50:07 Cordis 7Fr Exoseal opened to sterile field. 8:50:17 Sheath removed intact; hemostasis achieved with Exoseal to the Right Femoral artery. 8:50:20 Procedure ended.(Physican Out) 8:51:23 Fluoroscopy time 04.60 minutes. 8:51:27 Fluoroscopy dose: 252 mGy 8:51:27 Flurop Dose total: 252 8:51:31 Contrast amount:Isovue 300 42ml. 8:51:32 Sharps counted by scrub and verified by R.N. 8:51:41 Insertion/operative site no bleeding no hematoma. 8:51:45 Post-op/insertion site Left Femoral artery dressed using a 4 x 4 and Tegaderm. 8:51:57 Post left femerol artery:stable, clean and dry 8:52:43 Post Procedure Pulses reassessed and unchanged 8:52:50 Post-procedure physical assessment completed. ASA score P 2 - A patient with mild systemic disease as per Dada Becerra MD. 8:52:52 Post procedure rhythm: unchanged. 8:52:54 Estimated blood loss: 10 ml 8:52:56 Patient needs reinforcement of post procedure teaching. 8:52:56 Post procedure instruction explained to patient.Patient verbalizes understanding. 8:53:06 Procedure type changed to Cath procedure, PCI procedure, Coronary Stent Initial, Miscellaneous Procedures, Moderate Sedation up to 30 minutes 8:53:12 Procedure Complication : No complications 8:53:16 See physician's report for complete and final results. 8:54:38 Full Disclosure recording stopped 8:56:04 Procedure and supply charges have been captured, reviewed, submitted and are correct. 8:56:10 Report given to PCU. 8:56:25 Patient transfered to PCU with Bed. 8:56:29 End room use (Document Last) Intervention Summary Intervention Notes Time ActionType Lesion and Equipment Action# Pressure Duration Attributes Used 8:43:16 Discard Medtronic Stent Resolute 4.0 X 18 stent 8:44:51 Discard Carson Balloon Sci [place] 3.5 X 15 balloon 8:47:11 Inflate Prox RCA Carson 1 21 00:12 balloon Sci [place] 3.5 X 15 balloon 8:49:37 Place stent Prox RCA Medtronic 2 17 00:09 Resolute 4.0 X 18 stent Device Usage Item Name Manufacture Quantity Catalog Number Hospital Part Current Mini [facility] Lot# / Charge Number Stock Stock Serial# Code Acist Acist 1 16745 [id number] [id number] [id number] 20 Syringe Medical Systems Inc Acist Hand Acist 1 37100 221653 672148 885150 5 Control Medical Systems Inc Bag Microtek 1 2001S 715933 54655 247453 5 Inspiron [employer] Inc. Medline Cardinal 1 [id number] 112792 63699 126758 [address] Wu St Wu 1 485322 084163 353172 866580 30 260cm J .035 wire Merit Merit 1 [id number] 430833 978549 106229 15 Westward Leaning Medical Inflation Kit Acist Acist 1 78526 088196 970486 013851 5 Mobincube Systems Inc Tegaderm 4 3M 1 [id number] 784892 956042 144486 5 x 4 Terumo 7Fr Terumo 1 [id number] 541655 504063 853256 5 Window Rock Sheath Humphreys Humphreys 1 [id number] 358149 206798 941459 5 Whisper J Vascular 300cm 0.014 guide wire Medtronic Medtronic 1 [id number] 788228 02001 437876 1 Launcher 6Fr AR 2.0 SH guide catheter Carson Sci Carson 1 [id number] 111379 132076 611255 5 Choice PT Scientific Extra Support J 300cm .014 gu Medtronic Medtronic 1 [id number] 798161 652232 0 [id number] Resolute 4.0 X 18 stent Carson Sci Carson 1 [id number] 822811 477317 222510 1 [id number] ForeUp 3.5 X 15 balloon Medtronic Medtronic 1 [id number] 524265 852474 319515 0 Launcher 7Fr HS II SH guide catheter Cordis 7Fr Cardinal 1 EX700 326250 184512 136257 5 [facility] Health Signature Audit [place] Stage Time Signature Unsigned Intra-Procedure 08/14/2016 Mary Lou 8:56:51 AM Counts RT(R) Signatures Monitor : Mary Lou Signature : Counts RT Date : Time : [facility] [address] [place] [address]
--- NOTE | ~2016-08-13 | HEMODYNAMI ---
PATIENT:RAISA JOYNER MEDICAL RECORD: [id number] : 44 LOCATION:DDAVID ADMISSION DATE: 08/13/16 Generatedon:08/13/201617:06 Patient name: RAISA JOYNER Patient #: [id number] : 1940 Date of study: 08/13/2016 Page: Of Hemodynamic Procedure Report Patient Data Patient Demographics Procedure consent was obtained First Name: RAISA Gender: Male Last Name: ANYA : 1940 [facility] Initial: LUKE Age: 76 year(s) Patient #: [id number] Race: SSN: [id number] Additional ID: [id number] Contact details Address: [address] [place] [address] State: [place] City: [place] Zip code: [address] Past Medical History Allergies Allergen Reaction Date Comments Reported Codeine 08/13/2016 Other allergy 08/13/2016 AMBIEN Admission Admission Data Admission Date: 08/13/2016 Admission Time: 14:03 Lab Results Lab Result Date: 08/13/2016 Lab Result Time: 0:00 Biochemistry Name Units Result Min Max BUN mg/dl 19 --(----)*- 7 18 Creatinine mg/dl 1.2 --(---*)-- 0.6 1.3 CBC Name Units Result Min Max Hemoglobin g/dl 13.7 --(*---)-- 13.5 17.5 Procedure Procedure Types Cath Procedure Diagnostic Procedure LHC LHC w/Coronaries PCI Procedure Coronary Stent Initial Miscellaneous Procedures Moderate Sedation up to 30 minutes Procedure Description Procedure Date Procedure Date: 08/13/2016 Procedure Start Time: 16:27 Procedure End Time: 16:49 Procedure Staff Name Function Jef Nicolas RT Monitor Jennifer Florentino RT Scrub Hailee Eagle RN Nurse Dada Becerra MD Performing Physician Ramos Go RT Monitor Indication Angina Procedure Data Cath Procedure Fluoroscopy Diagnostic fluoroscopy Total fluoroscopy Time: 4.5 time: 4.5 min min Diagnostic fluoroscopy Total fluoroscopy dose: 454 dose: 454 mGy mGy Contrast Material Contrast Material Type Amount (ml) Isovue 300 79 Entry Location Entry Primary Successful Side Size Upsize Upsize Entry Closure Succes sful Closure Location (Fr) 1 (Fr) 2 (Fr) Remarks Device Remarks Femoral Right 5 Fr 6 Fr Exoseal artery Short Diagnostic catheters Device Type Used For End Catheter Placement Cordis 5Fr Pigtail LV Angiography Catheter (MP) Cordis 5Fr JL 4.0 Left Coronary Catheter (MP) Angiography Cordis 5Fr 3DRC Catheter Right Coronary (MP) Angiography Procedure Complications No complications Procedure Medications Medication Administration Route Dosage Oxygen NC 2 l/min Lidocaine 2% added to field 20 Heparin Flush Bag added to field 2 bags (1000units/500ml NS) 0.9% NaCl I.V. 100 ml/hr Versed I.V. 1 mg Fentanyl I.V. 50 mcg Versed I.V. 1 mg Fentanyl I.V. 50 mcg Heparin Bolus I.V. 5000 units Integrilin (Bolus I.V. 7.3 ml 2mg/ml) Integrilin (Bolus 7.3 ml 2mg/ml) Fentanyl I.V. 50 mcg Fentanyl I.V. 50 mcg Plavix P.O. 600 mg Hemodynamics Rest HGB: 13.7 (g/dl) Heart Rate: 55 (bpm) Snapshots Pre Cath Intra NCS Post Cath Vital Signs Time Heart Resp SPO2 etCO2 [id number] NIBP (mmHg) Rhythm Pain Status Ruth tion Rate (ipm) (%) (mmHg) (mmHg) Level (bpm) 16:16:12 55 18 100 0 0 123/75(105) NSR 4 (11) , 10(A ) Distressing 16:20:24 53 21 97 0 0 110/68(81) NSR 4 (11) , 10(A ) Distressing 16:24:34 54 19 94 0 0 106/62(75) NSR 4 (11) , 10(A ) Distressing 16:28:42 53 18 98 0 0 99/65(86) NSR 0 (11) , No 9(A) pain 16:32:48 56 15 95 0 0 95/60(78) NSR 0 (11) , No 9(A) pain 16:36:53 59 17 94 0 0 93/59(80) NSR 0 (11) , No 9(A) pain 16:40:57 64 16 96 0 0 94/59(80) NSR 0 (11) , No 9(A) pain 16:45:03 58 16 98 0 0 104/58(80) NSR 0 (11) , No 9(A) pain 16:49:13 56 16 98 0 0 99/55(80) NSR 0 (11) , No 10(A ) pain 17:02:40 55 17 100 0 0 115/74(87) NSR 0 (11) , No 10(A ) pain Medications Time Medication Route Dose Verified Delivered Reason Notes Effectiveness by by 16:15:59 Oxygen NC 2 Dada Buffie used for l/min Mariam Eagle RN procedure 16:16:07 Lidocaine 2% added 20ml Dada Buffie used for to vial Mariam Eagle RN procedure field 16:16:13 Heparin Flush added 2 Dada Buffie used for Bag to bags Mariam Eagle RN procedure (1000units/500ml field NS) 16:16:25 0.9% NaCl I.V. 100 Adda Buffie Per physician ml/hr Mariam Eagle RN 16:23:31 Versed I.V. 1 mg Dada Buffie for sedation Mariam Eagle RN 16:23:37 Fentanyl I.V. 50 Dada Buffie for sedation mcg Mariam Eagle RN 16:28:23 Versed I.V. 1 mg Dada Buffie for sedation Mariam Eagle RN 16:28:27 Fentanyl I.V. 50 Dada Buffie for sedation mcg Mariam Eagle RN 16:31:46 Fentanyl I.V. 50 Dada Buffie for sedation mcg Mariam Eagle RN 16:32:44 Heparin Bolus I.V. 5000 Dada Buffie for Verifi ed units Mariam Eagle RN anticoagulation with dr becerra 16:34:33 Integrilin I.V. 7.3 Dada Stephen for Wasted (Bolus 2mg/ml) ml Mariam Eagle RN antiplatelet 2.7 ml therapy of vial 16:37:01 Integrilin IC 7.3 Dada Dada for Wasted (Bolus 2mg/ml) ml Mariam Becerra MD antiplatelet 2.7 ml therapy of vial 16:40:48 Fentanyl I.V. 50 Dada Buffie for sedation mcg Tauth MD Eagle RN 16:47:05 Plavix P.O. 600 Dada Stephen for mg Mariam Eagle RN antiplatelet therapy Procedure Log Time Note 15:55:13 Informed consent obtained and on chart 15:55:20 Diagnostic Cath Status : Elective 15:56:52 Hailee Eagle RN sent for patient. Start room use. 15:56:53 Time tracking: Regular hours 15:56:59 Plan of Care:Hemodynamics will remain stable., Cardiac rhythm will remain stable., Comfort level will be maintained., Respiratory function will remain adequate., Patient/ family verbilizes understanding of procedure., Procedure tolerated without complication., Recovers from procedure without complications.. 15:58:31 Indication : Angina 16:07:29 Patient received from Pre/Post Procedure Room to CCL 1 Alert and oriented. Tansferred to table in Supine position. 16:07:30 Warm blankets applied, and ramos hugger turned on for patient comfort. 16:07:31 Correct patient and procedure confirmed by team. 16:07:32 ECG and BP/O2 sat monitors applied to patient. 16:15:08 Vital chart was started 16:15:08 Baseline sample Acquired. 16:15:11 Rhythm: sinus rhythm 16:15:13 Full Disclosure recording started 16:15:59 Oxygen 2 l/min NC was administered by Hailee Eagle RN; used for procedure; 16:16:07 Lidocaine 2% 20ml vial added to field was administered by Hailee Eagle RN; used for procedure; 16:16:13 Heparin Flush Bag (1000units/500ml NS) 2 bags added to field was administered by Hailee Eagle RN; used for procedure; 16:16:25 0.9% NaCl 100 ml/hr I.V. was administered by Hailee Eagle RN; Per physician; 16:16:30 H&P Date Dictated: 08/13/2016 Within 30 days and on chart., H&P Addendum completed by physician on day of procedure. (MUST COMPLETE FOR ALL OUTPATIENTS). 16:16:31 Pre-op teaching completed and patient verbalized understanding. 16:16:31 Pre-procedure instructions explained to patient. 16:16:33 Family in patients room. 16:16:35 Patient NPO since Midnight. 16:16:46 Patient allergic to Codeine 16:16:58 Patient allergic to Other allergyAMBIEN 16:17:01 Is the patient allergic to Iodine/contrast media? No. 16:17:07 Is patient on blood thinner?No 16:17:08 Patient diabetic? Yes. 16:17:10 If diabetic: On Metformin? No 16:17:12 ----Pre-sedation anethsthesia assessment.---- 16:17:14 Previous problem with sedation/anesthesia? No ? 16:17:20 Snore? Yes 16:17:22 Sleep apnea? No 16:17:24 Deviated septum? No 16:17:25 Opens mouth fully? Yes 16:17:27 Sticks out tongue? Yes 16:17:34 Airway obstruction? No ? 16:17:37 Dentures? No ? 16:18:11 Pre procedure: right dorsailis pedis pulse 1+ Palpable, but thready & weak; easily obliterated 16:19:42 Patient pain scale 0/10 ?. 16:19:53 Patient pain scale 4/10 CP. 16:20:02 IV patent on arrival in right antecubital with 0.9% NaCl at 10ml/hr. 16:22:05 Lab Result : Hemoglobin 13.7 g/dl 16:22:05 Lab Result : Creatinine 1.2 mg/dl 16:22:05 Lab Result : BUN 19 mg/dl 16:22:13 Lab results completed and on chart. 16:22:16 Right groin area was prepped with chlora-prep and draped in sterile fashion 16:22:17 Alarms reviewed by R. N. 16:22:18 --------ALL STOP TIME OUT------ 16:22:18 Sharps counted by scrub and verified by R.N. 16:22:19 Final Timeout: patient, procedure, and site verified with staff and physician. All members of the team are in agreement. 16:22:20 Right groin site verified by team. 16:22:24 Physical assessment completed. ASA score P 2 - A patient with mild systemic disease as per Dada Becerra MD. 16:22:28 Sedation plan: IV Moderate Sedation Versed, Fentanyl 16:23:31 Versed 1 mg I.V. was administered by Hailee Eagle RN; for sedation; 16:23:37 Fentanyl 50 mcg I.V. was administered by Hailee Eagle RN; for sedation; 16:23:44 Zero performed for pressure channel P1 16:26:34 Use device set Femoral Dx 16:26:35 Bag Decanter opened to sterile field. 16:26:35 Acist Syringe opened to sterile field. 16:26:36 St Wu 260cm J .035 wire opened to sterile field. 16:26:36 Terumo 5Fr [place] Sheath opened to sterile field. 16:26:36 Medline Cath Pack opened to sterile field. 16::38 Diagnostic Infinity 5Fr Multipack catheter opened to sterile field. 16::38 Acist Manifold opened to sterile field. 16:26:38 Acist Hand Control opened to sterile field. 16:26:39 Tegaderm 4 x 4 opened to sterile field. 16:26:42 Procedure started. 16:27:15 Local anesthetic to right femoral artery with Lidocaine 2% by Dada Becerra MD.INITIAL ACCESS ONLY 16:27:23 A 5 Fr sheath was inserted into the Right Femoral artery 16:28:23 Versed 1 mg I.V. was administered by Hailee Eagle RN; for sedation; 16:28:27 Fentanyl 50 mcg I.V. was administered by Hailee Eagle RN; for sedation; 16:28:48 A Cordis 5Fr Pigtail Catheter (MP) was advanced over the wire and used for LV Angiography. 16:28:52 LV angiography performed. 16:28:59 EF : 50 % 16:29:01 Catheter removed. 16:29:09 A Cordis 5Fr JL 4.0 Catheter (MP) was advanced over the wire and used for Left Coronary Angiography. 16:29:24 LCA angiography performed. 16:29:56 Catheter removed. 16:30:15 Humphreys Whisper J 300cm 0.014 guide wire opened to sterile field. 16:30:15 Surfly BasixCompak Inflation Kit opened to sterile field. 16:30:15 Terumo 6Fr [place] Sheath opened to sterile field. 16:30:20 A Cordis 5Fr 3DRC Catheter (MP) was advanced over the wire and used for Right Coronary Angiography. 16:30:23 RCA angiography performed. 16:31:46 Fentanyl 50 mcg I.V. was administered by Hailee Eagle RN; for sedation; 16:32:44 Heparin Bolus 5000 units I.V. was administered by Hailee Eagle RN; for anticoagulation; Verified with dr becerra 16:33:03 Catheter removed. 16:33:20 ACC PCI Site: mLAD has 100% stenosis. 16:33:23 ACC Pre-intervention STARLA Flow is 3. 16:33:30 Sheath upsized to a 6 Fr Short. 16:34:27 Cordis 6FR XBLAD 3.5 guide catheter opened to sterile field. 16:34:29 Cordis 6FR XBLAD 4.0 guide catheter opened to sterile field. 16:34:33 Integrilin (Bolus 2mg/ml) 7.3 ml I.V. was administered by Hailee Eagle RN; for antiplatelet therapy; Wasted 2.7 ml of vial 16:34:37 6 Fr XBLAD 3.5 guide catheter was inserted over the wire 16:34:40 Guide catheter removed. 16:34:46 6 Fr XBLAD 4 guide catheter was inserted over the wire 16:35:03 WHISPER wire advanced. 16:36:34 Inflation number: 1 A [place] Sci Duchesne 2.5 X 20 balloon was prepped and advanced across the Mid LAD, then inflated to 9 KHANG for 0:11 (min:sec). 16:36:53 Inflation number: 2 The [place] Sci Duchesne 2.5 X 20 balloon was reinflated across the Mid LAD, to 9 KHANG for 0:11 (min:sec). 16:36:57 Balloon removed over the wire. 16:37:01 Integrilin (Bolus 2mg/ml) 7.3 ml IC was administered by Dada Becerra MD; for antiplatelet therapy; Wasted 2.7 ml of vial 16:39:33 Inflation Number: 3 A Medtronic Resolute 2.5 X 22 stent was prepped and advanced across the Mid LAD. The stent was deployed at 19 KHANG for 0:10 (min:sec). 16:39:47 Inflation number: 4 The stent balloon was then re-inflated across the Mid LAD to 23 KHANG for 0:12 (min:sec). 16:40:41 ACC Post-intervention STARLA Flow is 3. 16:40:42 Stent catheter was removed intact over wire. 16:40:43 Wire removed. 16:40:44 Guide catheter removed. 16:40:48 Fentanyl 50 mcg I.V. was administered by Hailee Eagle RN; for sedation; 16:40:56 Sheath removed intact; hemostasis achieved with Exoseal to the Right Femoral artery. 16:41:03 Cordis 6Fr Exoseal opened to sterile field. 16:41:06 Procedure ended.(Physican Out) 16:41:11 Contrast amount:Isovue 300 79ml. 16:41:27 Fluoroscopy time 04.50 minutes. 16:41:32 Fluoroscopy dose: 454 mGy 16:41:32 Flurop Dose total: 454 16:41:34 Sharps counted by scrub and verified by R.N. 16:41:35 Insertion/operative site no bleeding no hematoma. 16:41:38 Post-op/insertion site Right Femoral artery dressed using a 4 x 4 and Tegaderm. 16:41:41 Post right femoral artery:stable 16:41:43 Post Procedure Pulses reassessed and unchanged 16:41:47 Post procedure: right dorsailis pedis pulse 2+ Normal; easily identifiable; not easily obliterated. 16:41:50 Post procedure rhythm: sinus rhythm 16:41:52 Post procedure instruction explained to patient.Patient verbalizes understanding. 16:42:06 Procedure type changed to Cath procedure, Diagnostic procedure, LHC, LHC w/Coronaries, PCI procedure, Coronary Stent Initial, Miscellaneous Procedures, Moderate Sedation up to 30 minutes 16:47:05 Plavix 600 mg P.O. was administered by Hailee Eagle RN; for antiplatelet therapy; 16:49:00 Procedure and supply charges have been captured, reviewed, submitted and are correct. 16:49:12 Procedure Complication : No complications 16:49:14 See physician's report for complete and final results. 16:49:14 Vital chart was stopped 16:49:16 Report given to PCU. 16:49:19 Patient transfered to PCU with Bed. 16:49:21 Full Disclosure recording stopped 16:49:21 Procedure ended. 16:49:24 End room use (Document Last) Intervention Summary Intervention Notes Time ActionType Lesion and Equipment Action# Pressure Duration Attributes Used 16:36:34 Inflate Mid LAD [place] 1 9 00:11 balloon Sci Duchesne 2.5 X 20 balloon 16:36:53 Reinflate Mid LAD [place] 2 9 00:11 balloon Sci Duchesne 2.5 X 20 balloon 16:39:33 Place stent Mid LAD Medtronic 3 19 00:10 Resolute 2.5 X 22 stent 16:39:47 Reinflate Mid LAD Medtronic 4 23 00:12 stent Resolute balloon 2.5 X 22 stent Device Usage Item Name Manufacture Quantity Catalog Number Hospital Part Current Mini mal Lot# / Charge Number Stock Stock Serial# Code Acist Acist 1 [id number] 875708 697104 20 Syringe Medical Systems Inc Bag Microtek 1 2002S 788196 48856 305872 5 Boxfish Inc. Medline Cardinal 1 [id number] 620271 04552 868920 5 Cath Pack Health Terumo 5Fr Terumo 1 [id number] 870166 878324 589610 [address] [address] Wu St Wu 1 356454 527487 748690 285511 30 260cm J .035 wire Acist Hand Acist 1 54209 139437 617143 357633 5 TranZfinity Medical Systems Inc Acist Acist 1 00659 333049 130659 881927 5 QFPay Medical Systems Inc Diagnostic Cardinal 1 [id number] 638291 80800 779044 30 Infinity Health 5Fr Multipack catheter Tegaderm 4 3M 1 1626W 016850 842966 139929 5 x 4 Cordis 5Fr Cardinal 1 806027 5 Pigtail Health Catheter (MP) Cordis 5Fr Cardinal 1 823420 5 JL 4.0 Health Catheter (MP) Terumo 6Fr Terumo 1 [id number] 481752 835395 277632 40 [place] Sheath Merit Merit 1 VZ4886 125105 435436 933914 15 BasixCompak Medical Inflation Kit Humphreys Humphreys 1 [id number] 885797 714746 010584 5 Whisper J Vascular 300cm 0.014 guide wire Cordis 5Fr Cardinal 1 356657 5 3DRC Health Catheter (MP) Cordis 6FR Cardinal 1 [id number] 473805 063557 439142 10 XBLAD 3.5 Health guide catheter Cordis 6FR Cardinal 1 [id number] 586242 332951 436641 3 XBLAD 4.0 Health guide catheter [place] Sci [place] 1 [id number] 649140 233004 141345 1 [id number] Duchesne Scientific 2.5 X 20 balloon Medtronic Medtronic 1 [id number] 297769 607420 5 [id number] Resolute 2.5 X 22 stent Cordis 6Fr Cardinal 1 EX600 208995 226375 348616 10 [facility] Health Signature Audit [place] Stage Time Signature Unsigned Intra-Procedure 08/13/2016 Ramos Go 5:05:59 PM RT(R) Signatures Monitor : Jef Nicolas RT Signature : Date : Time : Monitor : Ramos Go RT Signature : Date : Time : [facility] [address] [place] [address]
[2016-08-13 14:28] VITALS: BP 133/75; BMI 25.9
[2016-08-13 15:19] LABS: BASOPHILS 0.5 % (0-2); EOSINOPHILS 3.7 % (0-7); HEMATOCRIT 40.8 % (42.0-54.0); HEMOGLOBIN 13.7 g/dL (13.5-17.5); IMMATURE GRANULOCYTES 0.2 % (0-5); LYMPHOCYTES 35.5 % (15-50); MCH 31.4 pg (26.0-34.0); MCHC 33.6 g/dL (31.0-37.0); MCV 93.4 fL (80.0-100.0); MEAN PLATELET VOLUME 11.3 fL (7.4-10.4); MONOCYTES 12.3 % (2-11); NEUTROPHILS 47.8 % (40-80); PLATELET COUNT 168 10x3/uL (130-400); RBC 4.37 10x6/uL (4.20-6.10); RDW 12.6 % (11.5-14.5); WBC 6.5 10x3/uL (4.8-10.8)
[2016-08-13 15:40] LABS: ANION GAP 12.1 mmol/L (8-16); CALCIUM 8.8 mg/dL (8.5-10.1); CARBON DIOXIDE 27.8 mmol/L (21.0-32.0); CREATININE - SERUM 1.2 mg/dL (0.6-1.3); POTASSIUM - SERUM 3.9 mmol/L (3.5-5.1)
--- NOTE | 2016-08-13 17:29 | NUR ---
RECEIVED PATIENT FROM MECHANICAL DETAILER AT THIS TIME. PATIENT ALERT/ORIENTED. CALL LIGHT PLACED WITHIN REACH. RIGHT GROIN DRESSING CLEAN, DRY AND INTACT. NO HEMATOMA FORMATION TO RIGHT GROIN. PERIPHERAL PULSES PATENT. 20 GAUGE TO RIGHT AC WITH NS AT 100ML/HOUR INFUSING. NO DISTRESS. PATIENTS AT BEDSIDE.
[2016-08-13 18:04] VITALS: BP 119/76; BMI 25.3
[2016-08-13 18:17] VITALS: BP 119/76; Ht 175.3 cm; Wt 77.7 kg
[2016-08-13 20:00] VITALS: BP 126/68
--- NOTE | 2016-08-13 21:01 | NUR ---
PT AWAKE, ALERT, ORIENTED, LYING FLAT ORDERED. PT IS AWARE THAT HE CAN AMBULATE AFTER 21:00. RIGHT GROIN DRESSING CLEAN, DRY AND INTACT, NO EVIDENCE OF HEMATOMA, BLEEDING OR BRUISING AT THIS TIME. AT BEDSIDE. PT DID EAT MOST OF HIS DINNER TRAY WITHOUT ANY DIFFICULTY. HOME MEDS RESTARTED. CONTINUE TO MONITOR CLOSELY. BED LOW, CALL LIGHT IN REACH, SIDE RAILS X 2, HOB FLAT.
[2016-08-14] VITALS: BP 80/42
--- NOTE | 2016-08-14 03:56 | NUR ---
PT LYING ON RIGHT SIDE, EYES CLOSED, RESPIRATIONS EVEN AND UNLABORED. PT IS EASILY ROUSABLE TO VERBAL STIMULI. CONTINUE TO MONITOR CLOSELY. BED LOW, CALL LIGHT IN REACH, SIDE RAILS X 2, HOB FLAT.
[2016-08-14 04:00] VITALS: BP 104/58
[2016-08-14 08:00] VITALS: BP 114/62
--- NOTE | 2016-08-14 08:06 | OP ---
PATIENT NAME: RAISA JOYNER MEDICAL RECORD: [id number] :44 LOCATION:D.M2 D.2104 ADMISSION DATE: SURGEON: SHABNAM WHITE MD DATE OF OPERATION: 08/13/2016 PROCEDURE: 1. Percutaneous transluminal coronary angioplasty stent of the left anterior descending. 2. Left heart catheterization. 3. Selective coronary angiography. 4. Left ventriculogram. INDICATION: Unstable angina. PROCEDURE IN DETAIL: After informed consent obtained and after detailed explanation of risks, benefits as well as alternative therapies, the patient elected to proceed with angiogram and angioplasty. The right femoral area was prepped and draped in normal sterile fashion. The right femoral artery was cannulated via modified Seldinger technique with placement of 6-Vincentian sheath. All catheters exchanged through this sheath. FINDINGS: Left ventriculogram was performed in the standard 30-degree UMANA view, reveals preserved ejection fraction at 50%. SELECTIVE CORONARY ANGIOGRAPHY: 1. Left main showed no significant angiographic disease. 2. Left anterior descending has an acute occlusion in the mid vessel. This is a stented area. 3. Left circumflex has mild irregularities, but no flow-limiting stenosis. 4. Right coronary artery has 80% stenosis times 2 proximally. This is new from previous angiography. This leads into a large RV marginal branch, that vessel was then totally occluded. The total occlusion in the mid vessel is not new. Distal right coronary artery fills via left to right collaterals throughout. PERCUTANEOUS TRANSLUMINAL CORONARY ANGIOPLASTY STENT OF THE LEFT ANTERIOR DESCENDING: The stent used is a 2.5 x 22 mm Resolute. Result was 0% residual stenosis. No further thrombus with pentecostal of STARLA-3 flow. IMPRESSION: Successful percutaneous transluminal coronary angioplasty stent of the left anterior descending going from 100% initial stenosis to 0% residual stenosis with pentecostal of STARLA 3 flow. TRANSINT:[id number] Voice Confirmation ID: [id number] DOCUMENT ID: [id number] SHABNAM WHITE MD at 0806 CC: [id number] DICTATION DATE: 08/13/16 1644 EMERGENCY SERVICES PROFESSIONAL: 08/13/16 1730 [facility] [address] [place] [address]
--- NOTE | 2016-08-14 09:15 | NUR ---
SEDATED. EASY TO AROUSE. ORIENTED X4. FAMILY AT BEDSIDE. BP-103/54, P-53 SINUS SUSI WITH DEPRESSED T-WAVE ON TELEMETRY, R-18. LT GROIN DRESSING CLEAN DRY INTACT. NO HEMATOMA. FREE FROM BLEEDING. PULSES +2 BILATERALLY. DENIES PAIN OR SOB. CONTINUE PLAN OF CARE. BED LOCKED AND LOW. CALL LIGHT IN REACH. TWO SIDERAILS UP. REFUSE SCDs. HOME MEDICATIONS TAKEN DUE TO INSURANCE. REMAIN FLAT FOR 4 HOURS.
[2016-08-14 12:00] VITALS: BP 98/57
[2016-08-14] MEDS ORDERED: ASPIRIN81 MG PO (12:15)
[2016-08-14] MEDS ORDERED: PLAVIX75 MG PO (12:15)
--- NOTE | 2016-08-14 13:30 | NUR ---
ALERT AND ORIENTED X4. GROIN DRESSINGS BILATERALLY CLEAN DRY INTACT. FREE FROM HEMATOMA. FREE FROM BLEEDING. AT BEDSIDE. DENIES PAIN OR SOB. DISCHARGE INSTRUCTIONS GIVEN VERBALLY AND WRITTEN. DISCHARGE PAPERS SIGNED ON CHART. DC RT AC IV TIP INTACT. ESCORT TO RIDE VIA WHEELCHAIR. REMAINS FREE FROM INJURY.
--- NOTE | 2016-08-14 13:36 | NUR ---
WENT OVER DC PAPERWORK WITH PT PT VERBALIZES UNDERSTANDING. DC PIV WITH CATH TIP INTACT. BOTH GROIN INICISION SITES LOOK WNL DRESSINGS CDI DC TELE AND RETURNED TO PRINCIPAL CONSULTANT. PT GETTING DRESSED AND WILL CALL WHEN READY TO GO DOWNSTAIRS.
--- NOTE | 2016-08-16 08:58 | OP ---
PATIENT NAME: RAISA JOYNER MEDICAL RECORD: [id number] :44 LOCATION:D.CAT ADMISSION DATE: SURGEON: SHABNAM WHITE MD DATE OF OPERATION: 08/14/2016 PROCEDURES: 1. PTCA stent of RCA. 2. Selective coronary angiography. INDICATION: Angina and coronary artery disease. DESCRIPTION OF THE PROCEDURE: After informed consent was obtained and after detailed explanation of risks, benefits as well as alternative therapies, the patient elected to proceed with angiogram and angioplasty. The left femoral area was prepped and draped in normal sterile fashion. Left femoral artery was cannulated via modified Seldinger technique with placement of a 7-Urdu sheath. All catheters exchanged through this sheath. FINDINGS: The right coronary artery has 80% to 90% stenosis proximally. This is totally occluded in mid vessel and only feeds a relatively large RV branch; however, he has had angina in the past with this anatomy that has resolved after PTCA stent of the proximal vessel. This was an in-stent restenosis. This was addressed with a 4.0 x 18 Resolute stent. Result was 0% residual stenosis. OVERALL IMPRESSION: Successful percutaneous transluminal coronary angioplasty stent of the proximal right coronary artery going from 80% to 90% initial stenosis to 0% residual. TRANSINT:[id number] Voice Confirmation ID: [id number] DOCUMENT ID: [id number] SHABNAM WHITE MD at 0858 CC: [id number] DICTATION DATE: 08/14/16 0857 FOOD SERVICE SUPERVISOR: 08/14/16 1819 [facility] CLI 08/14/16 [place] [id number] [place] [id number]
--- NOTE | 2016-08-16 08:58 | DS ---
PATIENT:RAISA JOYNER :44 MEDICAL RECORD: [id number] DISCHARGE SUMMARY ADMISSION DATE: 08/13/16 DISCHARGE DATE: 08/14/16 DATE OF DISCHARGE: 08/14/2016 DISCHARGE DIAGNOSES: 1. Angina. 2. Coronary artery disease 3. Percutaneous transluminal coronary angioplasty stent right coronary artery and left anterior descending this admission. HOSPITAL COURSE: Mr. Joyner presents with anginal symptomatology, found to have an acute closure of his LAD, has been off Plavix since March. This was at the site of a previously placed stent. He underwent reopening of the LAD. He as well had disease of the RCA. The RCA only feeds a large RV branch, but he has had chest pain with this being blocked in the past. Hence, we proceeded with PTCA stent of the RCA proximally as well. He had an uneventful postop course. No further anginal symptomatology. He was discharged home to reinstitute aspirin and Plavix, most likely to never stop Plavix in the future. He will follow up with [facility] in 1 month. TRANSINT:[id number] Voice Confirmation ID: [id number] DOCUMENT ID: [id number] SHABNAM WHITE MD at 0858 CC: [id number] DICTATION DATE: 08/14/16 0856 CHROMIUM PLATER: 08/15/16 0143 [facility] CLI 08/14/16 [place] [id number] [place] [address]
== END 2016-08-14 13:30 | disposition home or self-care (01) ==
LOC: D.CATH 14:03 → D.M2 14:03 → D.CATH 15:00 → D.M2 17:21 → D.CATH 08-14 13:30
PROVIDERS: Internal Medicine Interventional Cardiology
DX: I25.110 Atherosclerotic heart disease of native coronary artery with unstable angina pectoris (principal); T82.855A Stenosis of coronary artery stent, initial encounter
CPT/HCPCS: 93458; C9600 ×2

== ENCOUNTER → 2016-11-21 15:28 | Outpatient (CLI) | payer MEDICARE, OTHER ==
[2016-08-13 18:17] VITALS: BMI 25.3
[~2016-11-21 15:28] MED LIST changes: +ASPIRIN81 MG PO
[2016-11-21 16:16] LABS: CHOL - HDL RATIO 5.7 ratio (2.3-4.9); LDL-HDL RATIO 4.1 ratio (1.5-3.5)
== END | disposition home or self-care (01) ==
LOC: D.LABREF 15:28
PROVIDERS: Internal Medicine Interventional Cardiology
DX: I10 Essential (primary) hypertension (principal)

== ENCOUNTER 2017-05-23 09:29 | Outpatient (CLI) | payer MEDICARE, OTHER ==
[~2017-05-23] VITALS: Ht 175.3 cm; Wt 81.8 kg
--- NOTE | ~2017-05-23 | OP ---
PATIENT NAME: RAISA JOYNER MEDICAL RECORD: [id number] :44 LOCATION:D.CAT ADMISSION DATE: SURGEON: SHABNAM WHITE MD DATE OF OPERATION: 05/23/2017 PROCEDURES: 1. Laser atherectomy, LAD. 2. PTCA, LAD. 3. Left heart catheterization. 4. Selective coronary angiography. 5. Left ventriculogram. INDICATION: Angina and coronary artery disease. PROCEDURE IN DETAIL: After informed consent was obtained and after a detailed explanation of the risks, benefits as well as alternative therapies, the patient elected to proceed with angiogram and angioplasty. The right femoral area was prepped and draped in normal sterile fashion. Right femoral artery was cannulated via modified Seldinger technique with placement of 6-Emirati sheath. All catheters exchanged through this sheath. FINDINGS: Left ventriculogram was performed in standard 30-degree UMANA view, reveals good cardiac wall motion throughout all segments. Overall ejection fraction estimated 60%. SELECTIVE CORONARY ANGIOGRAPHY: 1. Left main showed no significant angiographic disease. 2. Left anterior descending has previously placed stents, these have 95% in-stent restenosis times 2. 3. Left circumflex has moderate irregularities, but no flow-limiting stenosis. 4. Right coronary is totally occluded in the mid vessel. This is not a new finding, this is unchanged from previous angiography. PTCA LASER ATHERECTOMY OF THE LAD: We used a 0.9 laser catheter, multiple passes made of 40/40 as well as 80/40, ballooning was undertaken with a 3.5 balloon. Result was 0% residual stenosis. OVERALL IMPRESSION: Successful percutaneous transluminal coronary angioplasty stent. Successful percutaneous laser atherectomy of the left anterior descending going from 95% initial stenosis times 2 to 0% residual. TRANSINT:[id number] Voice Confirmation ID: [id number] DOCUMENT ID: [id number] SHABNAM WHITE MD CC: [id number] DICTATION DATE: 05/23/17 1209 SPRING UP SUPERVISOR: 05/23/17 [id number] [place] [address]
--- NOTE | ~2017-05-23 | HEMODYNAMI ---
PATIENT:RAISA JOYNER MEDICAL RECORD: [id number] : 44 LOCATION:D.CAT ADMISSION DATE: 05/23/17 Generatedon:05/23/201712:17 Patient name: RAISA JOYNER Patient #: [id number] : 1940 Date of study: 05/23/2017 Page: Of Hemodynamic Procedure Report Patient Data Patient Demographics Procedure consent was obtained First Name: RAISA Gender: Male Last Name: ANYA : 1940 [facility] Initial: LUKE Age: 77 year(s) Patient #: [id number] Race: SSN: [id number] Additional ID: [id number] Contact details [address]: [address] [place] [address] State: [place] City: [place] Zip code: [address] Past Medical History Allergies Allergen Reaction Date Comments Reported Codeine 08/13/2016 Other allergy 08/13/2016 AMBIEN Other allergy 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 Admission Admission Data Admission Date: 05/23/2017 Admission Time: 9:29 Height (in.): 69 BSA: 1.97 (m2) Height (cm.): 175.26 BMI: 26.43 (kg/m2) Weight (lbs.): 179 Weight (kg.): 81.19 Procedure Procedure Types Cath Procedure Diagnostic Procedure [facility] w/Coronaries PCI Procedure Coronary Atherectomy Atherectomy w/PTCA Coronary Initial Miscellaneous Procedures Moderate Sedation up to 30 minutes Procedure Description Procedure Date Procedure Date: 05/23/2017 Procedure Start Time: 11:41 Procedure End Time: 12:08 Procedure Staff Name Function Dada Becerra MD Performing Physician Jennifer Florentino RT Monitor Love Casanova RT Scrub Hailee Eagle RN Nurse Procedure Data Cath Procedure Fluoroscopy Diagnostic fluoroscopy Total fluoroscopy Time: 0 time: 0 min min Diagnostic fluoroscopy Total fluoroscopy dose: 956 dose: 956 mGy mGy Contrast Material Contrast Material Type Amount (ml) Isovue 300 81 Entry Location Entry Primary Successful Side Size Upsize Upsize Entry Closure Succes sful Closure Location (Fr) 1 (Fr) 2 (Fr) Remarks Device Remarks Femoral Right 5 Fr 6 Fr Exoseal artery Short Estimated blood loss: 5 ml Diagnostic catheters Device Type Used For End Catheter Placement MULTIPACK Pigtail 5 Fr Multi-vessel catheter Angiography MULTIPACK JL 4.0 5Fr Left Coronary catheter Angiography MULTIPACK 3DRC 5Fr Right Coronary catheter Angiography Procedure Complications No complications Procedure Medications Medication Administration Route Dosage Oxygen NC 2 l/min Lidocaine 2% added to field 20 Heparin Flush Bag added to field 2 bags (1000units/500ml NS) 0.9% NaCl I.V. 100 ml/hr Versed I.V. 1 mg Fentanyl I.V. 50 mcg Versed I.V. 1 mg Fentanyl I.V. 50 mcg Heparin Bolus I.V. 4000 units Versed I.V. 1 mg Fentanyl I.V. 50 mcg Versed I.V. 1 mg Fentanyl I.V. 50 mcg Hemodynamics Rest BSA: 1.97 (m2) O2 Consumption: Estimated: 219.81 (ml/min) O2 Consumption indexed : Estimated:111.58 (ml/min/m) Heart Rate: 61 (bpm) Pressure Samples Time Site Value (mmHg) Purpose Heart Use Rate(bpm) 11:43 LV 49/3,0 Snapshot 51 Snapshots Pre Cath Intra NCS Post Cath Vital Signs Time Heart Resp SPO2 etCO2 NIBP (mmHg) Rhythm Pain Status Sedation Rate (ipm) (%) (mmHg) Level (bpm) 11:00:04 55 18 100 0 123/75(104) NSR 0 (11) , No 10(A) pain 11:04:16 51 16 98 0 122/70(108) NSR 0 (11) , No 10(A) pain 11:08:30 49 16 99 0 135/60(98) NSR 0 (11) , No 10(A) pain 11:12:48 48 16 98 0 110/67(82) NSR 0 (11) , No 10(A) pain 11:16:56 49 17 99 30.4 117/67(81) NSR 0 (11) , No 10(A) pain 11:21:08 51 17 95 32.4 108/64(78) NSR 0 (11) , No 10(A) pain 11:25:15 52 15 97 35.8 109/65(74) NSR 0 (11) , No 10(A) pain 11:29:23 53 14 99 33.5 102/60(75) NSR 0 (11) , No 10(A) pain 11:33:25 59 14 99 35 104/61(79) NSR 0 (11) , No 10(A) pain 11:37:33 53 13 100 31.2 98/59(71) NSR 0 (11) , No 10(A) pain 11:41:34 55 15 100 22.8 111/66(93) NSR 0 (11) , No 9(A) pain 11:45:44 52 14 100 33.5 107/61(91) NSR 0 (11) , No 9(A) pain 11:49:52 53 13 99 29.7 102/60(73) NSR 0 (11) , No 9(A) pain 11:54:00 55 15 98 31.2 100/55(77) NSR 0 (11) , No 9(A) pain 11:58:08 56 15 100 32.7 89/55(62) NSR 0 (11) , No 9(A) pain 12:02:09 57 15 100 35 99/59(75) NSR 0 (11) , No 10(A) pain 12:06:11 56 15 100 29.6 115/71(97) NSR 5 (11) , 10(A) Very distressing 12:16:11 57 15 96 0 126/71(94) NSR 3 (11) , 10(A) Tolerable Medications Time Medication Route Dose Verified Delivered Reason Notes Effectiveness by by 11:18:34 Oxygen NC 2 Dada Stephen used for l/min Mariam Eagle RN procedure 11:18:40 Lidocaine 2% added 20ml Dada Garland for local to vial Mariam Becerra MD anesthetic field 11:18:46 Heparin Flush added 2 Dada Garland used for Bag to bags Mariam Becerra MD procedure (1000units/500ml field NS) 11:32:02 Versed I.V. 1 mg Dada Stephen for sedation Mariam Eagle RN 11:32:08 Fentanyl I.V. 50 Dada Stephen for sedation mcg Mariam Eagle RN 11:41:49 0.9% NaCl I.V. 100 Dada Deangeloie Per physician ml/hr Mariam Eagle RN 11:42:29 Versed I.V. 1 mg Dada Buffie for sedation Mariam Eagle RN 11:42:33 Fentanyl I.V. 50 Dada Buffie for sedation mcg Mariam Eagle RN 11:50:00 Heparin Bolus I.V. 4000 Dada Buffie for units Mariam Eagle RN anticoagulation 11:51:16 Versed I.V. 1 mg Dada Buffie for sedation Mariam Eagle RN 11:51:19 Fentanyl I.V. 50 Dada Buffie for sedation mcg Mariam Eagle RN 12:02:20 Versed I.V. 1 mg Dada Buffie for sedation Mariam Eagle RN 12:02:24 Fentanyl I.V. 50 Dada Buffie for sedation mcg Mariam Eagle RN Procedure Log Time Note 10:44:54 Patient Height : 69 inches 10:44:58 Patient Weight : 179 lbs 10:45:48 Diagnostic Cath status Elective 10:45:50 Jennifer Florentino RT(R) sent for patient. Start room use. 10:45:51 Time tracking: Regular hours 10:45:56 Plan of Care:Hemodynamics will remain stable., Cardiac rhythm will remain stable., Comfort level will be maintained., Respiratory function will remain adequate., Patient/ family verbilizes understanding of procedure., Procedure tolerated without complication., Recovers from procedure without complications.. 10:50:25 Patient received from Pre/Post Procedure Room to CCL 2 Alert and oriented. Tansferred to table in Supine position. 10:50:26 Warm blankets applied, and ramos hugger turned on for patient comfort. 10:50:26 Correct patient and procedure confirmed by team. 10:50:28 Signed procedure consent form obtained from patient. 10:50:30 ECG and BP/O2 sat monitors applied to patient. 10:58:50 Vital chart was started 11:00:56 Baseline sample Acquired. 11:01:09 Baseline sample Acquired. 11:01:12 Full Disclosure recording started 11:01:28 H&P Date Dictated: 05/22/2017 Within 30 days and on chart., H&P Addendum completed by physician on day of procedure. (MUST COMPLETE FOR ALL OUTPATIENTS). 11:01:30 Pre-procedure instructions explained to patient. 11:01:30 Pre-op teaching completed and patient verbalized understanding. 11:01:33 Family in patients room. 11:01:34 Patient NPO since Midnight. 11:01:48 Patient allergic to Other allergyambien, codeine 11:01:50 Is the patient allergic to Iodine/contrast media? No. 11:01:51 Was the patient premedicated? No 11:02:09 Is patient on blood thinner?Yes 11:02:11 ACC The patient was administered the following blood thiners within the last 24 hours: ACCPlavix 11:02:13 Patient diabetic? Yes. 11:02:14 If diabetic: On Metformin? No 11:02:17 Previous problem with sedation/anesthesia? No ? 11:02:18 Snore? Yes 11:02:19 Sleep apnea? No 11:02:20 Deviated septum? No 11:02:21 Opens mouth fully? Yes 11:02:21 Sticks out tongue? Yes 11:02:23 Airway obstruction? No ? 11:02:26 Dentures? No ? 11:02:29 Pre procedure: right dorsailis pedis pulse 2+ Normal; easily identifiable; not easily obliterated 11:02:31 Pre procedure: left dorsailis pedis pulse 2+ Normal; easily identifiable; not easily obliterated 11:02:33 Patient pain scale 0/10 ?. 11:02:39 IV patent on arrival in left hand with 0.9% NaCl at [facility]. 11:02:42 Lab results completed and on chart. 11::46 Right groin area was prepped with chlora-prep and draped in sterile fashion :47 Alarms reviewed by R. N. :47 Sharps counted by scrub and verified by R.N. 11:14:00 Zero performed for pressure channel P1 11:18:34 Oxygen 2 l/min NC was administered by Hailee Eagle RN; used for procedure; ::40 Lidocaine 2% 20ml vial added to field was administered by Dada Becerra MD; for local anesthetic; :46 Heparin Flush Bag (1000units/500ml NS) 2 bags added to field was administered by Dada Becerra MD; used for procedure; :47 Physician arrived ::47 --------ALL STOP TIME OUT------ 11:27:48 Final Timeout: patient, procedure, and site verified with staff and physician. All members of the team are in agreement. 11:27:51 Right groin site verified by team. 11:27:54 Physical assessment completed. ASA score P 2 - A patient with mild systemic disease as per Dada Becerra MD. 11:27:57 Sedation plan: IV Moderate Sedation Medication:Versed, Fentanyl 11:28:28 Use device set Femoral Dx 11:28:30 ACIST Syringe (52328) opened to sterile field. 11:28:30 Bag Decanter (2002S) opened to sterile field. 11:28:31 Medline Cath Pack ([id number]) opened to sterile field. 11:28:31 SHEATH 5FR Kincaid (DPD534) opened to sterile field. 11:28:32 DIAGNOSTIC WIRE .035 260cm J wire (751900) opened to sterile field. 11:28:33 ACIST Hand Control (90559) opened to sterile field. 11:28:33 ACIST Manifold (98628) opened to sterile field. 11:28:34 DIAGNOSTIC Multipack 5Fr catheter set ([id number]) opened to sterile field. 11:28:35 Tegaderm 4 x 4 (1626W) opened to sterile field. 11:32:02 Versed 1 mg I.V. was administered by Hailee Eagle RN; for sedation; 11:32:08 Fentanyl 50 mcg I.V. was administered by Hailee Eagle RN; for sedation; 11:41:03 Procedure started. 11:41:13 Local anesthetic to right femoral artery with Lidocaine 2% by Dada Becerra MD.INITIAL ACCESS ONLY 11:41:23 A 5 Fr sheath was inserted into the Right Femoral artery 11:41:49 0.9% NaCl 100 ml/hr I.V. was administered by Hailee Eagle RN; Per physician; 11:42:23 A MULTIPACK Pigtail 5 Fr catheter was advanced over the wire and used for Multi-vessel Angiography. 11:42:29 Versed 1 mg I.V. was administered by Hailee Eagle RN; for sedation; 11:42:33 Fentanyl 50 mcg I.V. was administered by Hailee Eagle RN; for sedation; 11:43:18 LV hemodynamics recorded. 11:43:19 LV gram done using UMANA 11:43:22 Injector settings: Ml/sec: 5, Volume: 15, 11:43:28 EF : 55 % 11:43:52 A MULTIPACK JL 4.0 5Fr catheter was advanced over the wire and used for Left Coronary Angiography. 11:46:39 LCA angiography performed. 11:46:41 Injector settings: Ml/sec: 3, Volume: 6, 11:46:44 Catheter removed. 11:46:52 A MULTIPACK 3DRC 5Fr catheter was advanced over the wire and used for Right Coronary Angiography. 11:47:02 RCA angiography performed. 11:47:05 Injector settings: Ml/sec: 3, Volume: 6, 11:48:04 Catheter removed. 11:48:08 Proceeding to intervention. 11:49:11 SHEATH 6FR Kincaid (INW828) opened to sterile field. 11:49:11 INFLATOR Merit BasixCompak (BV4174) opened to sterile field. 11:49:58 GUIDE 6FR XBLAD 4.0 catheter ([id number]) opened to sterile field. 11:50:00 Heparin Bolus 4000 units I.V. was administered by Hailee Eagle RN; for anticoagulation; 11:50:50 GRAPHIX 182cm guide wire ([id number]) opened to sterile field. 11:51:16 Versed 1 mg I.V. was administered by Hailee Eagle RN; for sedation; 11:51:19 Fentanyl 50 mcg I.V. was administered by Hailee Eagle RN; for sedation; 11:52:10 Sheath upsized to a 6 Fr Short. 11:52:19 6 Fr xblad 4 guide catheter was inserted over the wire 11:52:27 pt graphix wire advanced. 11:52:29 Wire advanced across lesion. 11:56:58 Laser pass to mLAD with Fluence of 40 and Rate of 40. 11:57:46 Laser pass to mLAD with Fluence of 80 and Rate of 40. 12:01:52 A LASER ELCA 0.9 Rx atherectomy catheter (797537) was prepped and advanced across the Mid LAD lesion. Pass Number: 1 12:02:20 Versed 1 mg I.V. was administered by Hailee Eagle RN; for sedation; 12:02:24 Fentanyl 50 mcg I.V. was administered by Hailee Eagle RN; for sedation; 12:03:16 Inflation number: 1 A EUPHORA 3.5 x 30 Balloon ([id number]) was prepped and advanced across the Mid LAD, then inflated to 21 KHANG for 0:10 (min:sec). 12:04:44 Balloon removed over the wire. 12:04:46 Wire removed. 12:04:46 Guide catheter removed. 12:04:53 EXOSEAL 6Fr (EX600) opened to sterile field. 12:05:04 Sheath removed intact; hemostasis achieved with Exoseal to the Right Femoral artery. 12:05:06 Procedure ended.(Physican Out) 12:05:22 Fluoroscopy time 00.00 minutes. 12:05:27 Fluoroscopy dose: 956 mGy 12:05:27 Flurop Dose total: 956 12:05:32 Contrast amount:Isovue 300 81ml. 12:05:34 Sharps counted by scrub and verified by R.N. 12:05:37 Insertion/operative site no bleeding no hematoma. 12:05:40 Post-op/insertion site Right Femoral artery dressed using a 4 x 4 and Tegaderm. 12:05:42 Post right femoral artery:stable 12:05:44 Post Procedure Pulses reassessed and unchanged 12:05:46 Post procedure rhythm: unchanged. 12:05:49 Estimated blood loss: 5 ml 12:05:51 Post procedure instruction explained to patient.Patient verbalizes understanding. 12:05:51 Patient needs reinforcement of post procedure teaching. 12:07:49 Procedure and supply charges have been captured, reviewed, submitted and are correct. 12:07:54 Procedure Complication : No complications 12:07:56 Vital chart was stopped 12:07:57 See physician's report for complete and final results. 12:08:00 Report given to Pre/Post Procedure Room. 12:08:12 Patient transfered to Pre/Post Procedure Room with Stretcher. 12:08:15 Procedure ended. 12:08:15 Full Disclosure recording stopped 12:08:41 ACC-PCI Only Patient was given prescriptions, or instructed by Dada Becerra MD to start/continue the following medications upon discharge: Plavix 12:10:21 End room use (Document Last) 12:12:32 Procedure type changed to Cath procedure, Diagnostic procedure, LHC, LHC w/Coronaries, PCI procedure, Coronary Atherectomy, Atherectomy w/PTCA Coronary Initial, Miscellaneous Procedures, Moderate Sedation up to 30 minutes 12:14:39 Laser total pulses delivered: 400 12:14:56 Laser total treatment time: 1 minutes 40 seconds Intervention Summary Intervention Notes Time ActionType Lesion and Equipment Action# Pressure Duration Attributes Used 12:01:52 Atherectomy Mid LAD LASER ELCA 00:00 0.9 Rx atherectomy catheter (912767) 12:03:16 Inflate Mid LAD EUPHORA 3.5 1 21 00:10 balloon x 30 Balloon ([id number]) Device Usage Item Name Manufacture Quantity Catalog Number Hospital Part Current Minim al Lot# / Charge Number Stock Stock Serial# Code ACIST Acist 1 15463 198956 298822 435229 20 Syringe Medical (75661) Systems Inc Bag Microtek 1 2001S 951256 21214 731968 5 Decanter Medical Inc. () Medline Cardinal 1 [id number] 170711 95245 110340 5 Cath Pack Health ([id number]) SHEATH 5FR Terumo 1 RKF906 767920 310939 867549 40 Kincaid (HTA892) DIAGNOSTIC St Wu 1 624804 290999 117776 795105 30 WIRE .035 260cm J wire (749521) ACIST Hand Acist 1 85871 558062 543097 072802 5 Control Medical (61739) Systems Inc ACIST Acist 1 50288 298026 960258 033594 5 Manifold Medical (36685) Systems Inc DIAGNOSTIC Cardinal 1 FF0970 364613 35131 509287 30 Multipack Health 5Fr catheter set (TA2454) Tegaderm 4 3M 1 1626W 931404 070556 329007 5 x 4 (1626W) MULTIPACK Cardinal 1 811849 5 Pigtail 5 Health Fr catheter MULTIPACK Cardinal 1 517410 5 JL 4.0 5Fr Health catheter MULTIPACK Cardinal 1 729341 5 3DRC 5Fr Health catheter SHEATH 6FR Terumo 1 QFS298 642700 828980 972434 40 Kincaid (BAG826) INFLATOR Merit 1 TL4931 386023 185395 411542 15 [facility] Medical BasixCompak (RF0003) GUIDE 6FR Cardinal 1 [id number] 934978 590516 214186 3 XBLAD 4.0 Health catheter (63695924) GRAPHIX [place] 1 [id number] 994719 876905 079854 5 182cm guide Scientific wire ([id number]) LASER ELCA Fitz 1 110-004 999648 267821 725088 5 [id number] 0.9 Rx Healthcare atherectomy (005113) catheter (462510) EUPHORA 3.5 Medtronic 1 [id number] 948798 992675 949699 5 [id number] x 30 Balloon (JOJ8917Y) EXOSEAL 6Fr Cardinal 1 EX600 500099 908221 823318 10 (EX600) Health Signature Audit [place] Time Signature Unsigned Intra-Procedure 05/23/2017 Jennifer Florentino 12:17:48 PM RT(R) Signatures Monitor : Jennifer Floretnino RT Signature : Date : Time : [id number] [place] [address]
[2017-05-23] MEDS ORDERED: ISOSORBIDE MONO30 M1 PO (09:59)
[2017-05-23] MEDS ORDERED: ZETIA10 MG PO (10:00)
[2017-05-23] MEDS ORDERED: VALTREX500 MG PO (10:01)
[2017-05-23] MEDS ORDERED: NITROQUICK0.4 MG SL (10:02)
[2017-05-23 10:12] VITALS: BP 135/77; Ht 175.3 cm; Wt 81.8 kg
[2017-05-23 10:34] LABS: BASOPHILS 0.1 % (0-2); EOSINOPHILS 1.3 % (0-7); HEMATOCRIT 38.8 % (42.0-54.0); HEMOGLOBIN 13.2 g/dL (13.5-17.5); IMMATURE GRANULOCYTES 0.8 % (0-5); LYMPHOCYTES 19.9 % (15-50); MCH 31.7 pg (26.0-34.0); MEAN PLATELET VOLUME 10.6 fL (7.4-10.4); MONOCYTES 11.5 % (2-11); NEUTROPHILS 66.4 % (40-80); PLATELET COUNT 185 10x3/uL (130-400); RBC 4.17 10x6/uL (4.20-6.10); RDW 13.6 % (11.5-14.5); WBC 9.3 10x3/uL (4.8-10.8)
[2017-05-23 10:39] LABS: ANION GAP 11.1 mmol/L (8-16); CALCIUM 8.2 mg/dL (8.5-10.1); CARBON DIOXIDE 29.2 mmol/L (21.0-32.0); CREATININE - SERUM 1.2 mg/dL (0.6-1.3); POTASSIUM - SERUM 4.3 mmol/L (3.5-5.1)
== END 2017-05-23 16:00 | disposition home or self-care (01) ==
LOC: D.CATH 09:29
PROVIDERS: Internal Medicine Interventional Cardiology
DX: I25.119 Atherosclerotic heart disease of native coronary artery with unspecified angina pectoris (principal); T82.855A Stenosis of coronary artery stent, initial encounter; Z01.812 Encounter for preprocedural laboratory examination

== ENCOUNTER 2017-06-22 17:14 | Inpatient (IN) | payer MEDICARE, OTHER ==
[~2017-06-22] VITALS: Ht 175.3 cm; Wt 78.7 kg
--- NOTE | ~2017-06-22 | DS ---
PATIENT:RAISA JOYNER :44 MEDICAL RECORD: [id number] DISCHARGE SUMMARY ADMISSION DATE: 06/22/17 DISCHARGE DATE: 06/23/17 DATE OF ADMISSION: 06/22/2017. DATE OF DISCHARGE: 06/23/2017. PROBLEM LIST: 1. Atrial fibrillation with rapid ventricular response. 2. Coronary artery disease, status post recent intervention. 3. Ongoing tobacco use. HOSPITAL COURSE: He recently underwent angiography with intervention and he was admitted with rapid heart rate, chest tightness and pressure. He was found to be in atrial fibrillation with RVR. He was given IV Cardizem bolus, started on sotalol and NOAC with prompt return of normal sinus rhythm. He is discharged home in good condition. Follow up with Dr. Becerra in 3-4 weeks. ACTIVITY: As tolerated. DIET: AHA diet. TRANSINT:[id number] Voice Confirmation ID: [id number] DOCUMENT ID: [id number] YASH GUIDO MD at 0846 CC: [id number] DICTATION DATE: 07/10/17 1344 FURNACE REPAIRER: 07/10/17 1420 DIS IN 06/23/17 [facility] [address] [id number]
[~2017-06-22 17:14] MED LIST changes: +ISOSORBIDE MONO30 M1 PO; +NITROQUICK0.4 MG SL; +VALTREX500 MG PO; +ZETIA10 MG PO
[2017-06-22 17:39] LABS: BASOPHILS 0.6 % (0-2); EOSINOPHILS 2.4 % (0-7); HEMATOCRIT 39.1 % (42.0-54.0); HEMOGLOBIN 13.3 g/dL (13.5-17.5); IMMATURE GRANULOCYTES 0.3 % (0-5); LYMPHOCYTES 23.3 % (15-50); MCH 30.9 pg (26.0-34.0); MCV 90.9 fL (80.0-100.0); MEAN PLATELET VOLUME 10.3 fL (7.4-10.4); MONOCYTES 16.5 % (2-11); NEUTROPHILS 56.9 % (40-80); PLATELET COUNT 173 10x3/uL (130-400); RDW 13.4 % (11.5-14.5); WBC 6.3 10x3/uL (4.8-10.8)
[2017-06-22 18:07] LABS: ALBUMIN 3.4 g/dL (3.4-5.0); ALKALINE PHOSPHATASE 63 U/L (46-116); ALT (SGPT) 28 U/L (10-68); BILIRUBIN - TOTAL 0.38 mg/dL (0.2-1.3); CALC OSMOLALITY 265 mosm/kg (275-300); CALCIUM 8.6 mg/dL (8.5-10.1); CARBON DIOXIDE 27.8 mmol/L (21.0-32.0); CHLORIDE - SERUM 98 mmol/L (98-107); CREATININE - SERUM 1.2 mg/dL (0.6-1.3); GLUCOSE 122 mg/dL (74-106); POTASSIUM - SERUM 4.3 mmol/L (3.5-5.1); PROTEIN - SERUM 7.8 g/dL (6.4-8.2); SODIUM 131 mmol/L (136-145); UREA NITROGEN 19 mg/dL (7-18); eGFR NON AFRICAN AMERICAN 63 mL/min (90-120)
[2017-06-22 18:18] LABS: CHOL - HDL RATIO 5.6 ratio (2.3-4.9); CHOLESTEROL, TOTAL 180 mg/dL (0-200); CREATINE KINASE 54 UL (21-232); HDL CHOLESTEROL 32 mg/dL (32-96); LDL CHOLESTEROL 119 mg/dL (0-100); LDL-HDL RATIO 3.7 ratio (1.5-3.5); TRIGLYCERIDE 147 mg/dL (30-200)
[2017-06-22 18:24] LABS: TROPONIN-I < 0.017 ng/mL (0.000-0.060)
[2017-06-22 22:21] VITALS: BP 105/69; BMI 25.6
[2017-06-23 01:21] LABS: CKMB 1.1 U/L (0.0-3.6); CREATINE KINASE 44 UL (21-232)
[2017-06-23 01:22] LABS: TROPONIN-I 0.112 ng/mL (0.000-0.060)
[2017-06-23 05:54] LABS: BASOPHILS 0.8 % (0-2); EOSINOPHILS 2.2 % (0-7); HEMATOCRIT 34.7 % (42.0-54.0); HEMOGLOBIN 11.9 g/dL (13.5-17.5); IMMATURE GRANULOCYTES 0.3 % (0-5); LYMPHOCYTES 26.5 % (15-50); MCH 30.8 pg (26.0-34.0); MCHC 34.3 g/dL (31.0-37.0); MCV 89.9 fL (80.0-100.0); MEAN PLATELET VOLUME 10.7 fL (7.4-10.4); MONOCYTES 16.4 % (2-11); NEUTROPHILS 53.8 % (40-80); PLATELET COUNT 164 10x3/uL (130-400); RBC 3.86 10x6/uL (4.20-6.10); RDW 13.4 % (11.5-14.5); WBC 6.4 10x3/uL (4.8-10.8)
[2017-06-23 06:00] VITALS: BP 92/52
[2017-06-23 06:42] LABS: ALBUMIN 2.7 g/dL (3.4-5.0); ALKALINE PHOSPHATASE 41 U/L (46-116); ALT (SGPT) 24 U/L (10-68); CALC OSMOLALITY 272 mosm/kg (275-300); CALCIUM 7.7 mg/dL (8.5-10.1); CARBON DIOXIDE 22.4 mmol/L (21.0-32.0); CHLORIDE - SERUM 102 mmol/L (98-107); CREATINE KINASE 30 UL (21-232); GLUCOSE 111 mg/dL (74-106); POTASSIUM - SERUM 3.8 mmol/L (3.5-5.1); PROTEIN - SERUM 6.5 g/dL (6.4-8.2); SODIUM 135 mmol/L (136-145); UREA NITROGEN 19 mg/dL (7-18); eGFR NON AFRICAN AMERICAN 77 mL/min (90-120)
[2017-06-23 06:43] LABS: TROPONIN-I 0.075 ng/mL (0.000-0.060)
[2017-06-23 08:30] VITALS: Ht 175.3 cm; Wt 78.7 kg
[2017-06-23 08:46] VITALS: BP 102/63
== END 2017-06-23 10:35 | disposition home or self-care (01) | DRG 309 ==
LOC: D.ER 17:14 → D.M2 20:01
PROVIDERS: Family Medicine
DX: I48.91 Unspecified atrial fibrillation (principal); I24.8 Other forms of acute ischemic heart disease; I25.10 Atherosclerotic heart disease of native coronary artery without angina pectoris; Z79.01 Long term (current) use of anticoagulants; R00.0 Tachycardia, unspecified; I10 Essential (primary) hypertension; E11.9 Type 2 diabetes mellitus without complications; E78.5 Hyperlipidemia, unspecified; Z86.73 Personal history of transient ischemic attack (TIA), and cerebral infarction without residual deficits

== ENCOUNTER 2018-07-31 06:10 | Day surgery (SDC) | payer MEDICARE, OTHER ==
[~2018-07-31] VITALS: Ht 175.3 cm; Wt 76.4 kg
[~2018-07-31 06:10] MED LIST changes: -BENICAR HCT 20-1 TA1 PO; +BENICAR HCT 401 EAC1 PO
[2018-07-31 06:42] LABS: ANION GAP 10.8 mmol/L (8-16); CALCIUM 8.7 mg/dL (8.5-10.1); CARBON DIOXIDE 29.1 mmol/L (21.0-32.0); CREATININE - SERUM 1.7 mg/dL (0.6-1.3); POTASSIUM - SERUM 3.9 mmol/L (3.5-5.1)
[2018-07-31 06:44] LABS: HEMATOCRIT 36.8 % (42.0-54.0); HEMOGLOBIN 12.8 g/dL (13.5-17.5); MCH 31.1 pg (26.0-34.0); MCHC 34.8 g/dL (31.0-37.0); MCV 89.5 fL (80.0-100.0); MEAN PLATELET VOLUME 10.5 fL (7.4-10.4); RBC 4.11 10x6/uL (4.20-6.10); RDW 12.9 % (11.5-14.5); WBC 6.5 10x3/uL (4.8-10.8)
[2018-07-31 07:31] VITALS: BP 108/59; Ht 175.3 cm; Wt 76.4 kg
[2018-07-31] MEDS ORDERED: XARELTO20 MG PO (08:00)
[2018-07-31 08:26] LABS: APTT 31.4 SECONDS (22.8-39.4); INR 1.17 (0.85-1.17); PROTIME 14.4 SECONDS (11.6-15.0)
--- NOTE | 2018-08-04 10:17 | OP ---
PATIENT NAME: RAISA JOYNER MEDICAL RECORD: [id number] :44 LOCATION:[place] ADMISSION DATE: SURGEON: JUAN TOLBERT MD DATE OF OPERATION: 07/31/2018 REFERRING PHYSICIAN: Dr. Lanie Moncada. PROCEDURE: EGD with biopsy. INDICATIONS: Mr. Joyner is a delightful 78-year-old gentleman with a history of short segment Gordon's esophagus. He has also had some recent hoarseness (had been off Protonix). Last EGD 05/13/2016 (Dr. Santana) showed a questionable short segment Gordon's esophagus, status post biopsy, large hiatal hernia, mild gastritis and mild duodenitis. Duodenal biopsy showed minimal chronic duodenitis. Gastric biopsies were negative for Helicobacter pylori and GE junction biopsies showed Gordon's esophagus with mild chronic inflammation. He has seen Dr. Jay in consultation (ENT) and perivocal cord mucosa was erythematous. He is presently taking Protonix 40 mg in the morning and ranitidine 150 mg at bedtime, and his hoarseness is getting better. He presents for outpatient EGD. PREMEDICATIONS: Total IV anesthesia (propofol 80 mg), history of coronary artery disease. INSTRUMENT: Artist Growth video gastroscope. PROCEDURE AND FINDINGS: After receiving informed consent, Mr. Joyner's posterior pharynx was anesthetized with Cetacaine spray, placed in left lateral decubitus position, sedated as per anesthesia. After achieving adequate level of sedation, gastroscope was introduced per orally and advanced to duodenum without difficulty. Esophageal mucosa was notable for 2 small patches of erythema at the GE junction, which were biopsied. The gastroesophageal junction was located at 36 cm. A large hiatal hernia was present, a portion of which may have been paraesophageal. Gastric mucosa was notable for mild prepyloric erythema and antral biopsies were obtained to rule out Helicobacter pylori. The mucosa of the cardia, fundus and body of the stomach appeared normal. Pylorus was patent and competent. Duodenal mucosa was without erythema or ulcers, appeared normal through the second portion. Gastroscope was then withdrawn. Mr. Joyner tolerated the procedure well, no immediate complications. ASSESSMENT: 1. Small short segment Gordon's esophagus, status post biopsy. 2. Large hiatal hernia, a portion which may be paraesophageal. 3. Mild gastritis. 4. Hoarseness secondary to gastroesophageal reflux. RECOMMENDATIONS: 1. Increase Protonix to 40 mg twice a day for approximately 3 months and then decreased back to daily. 2. Upper GI series to further study the anatomy of the hiatal hernia. TRANSINT:[id number] Voice Confirmation ID: [id number] DOCUMENT ID: [id number] OPERATIVE REPORT [id number] RAISA JOYNER TERRI MD at 1017 CC: LANIE MONCADA MD, SHABNAM JAY MD and SHABNAM WHITE [phone] DICTATION DATE: 07/31/18 0855 COTTON PROGRAM TECHNICIAN: 07/31/18 1213 [facility] SDC 07/31/18 [facility] [address] [place] [address]
== END 2018-07-31 10:35 | disposition home or self-care (01) ==
LOC: D.OPS 06:10
PROVIDERS: Anesthesiology; ATTEND Internal Medicine Gastroenterology
DX: K22.70 Barrett's esophagus without dysplasia (principal); K44.9 Diaphragmatic hernia without obstruction or gangrene; K29.50 Unspecified chronic gastritis without bleeding; K20.9 Esophagitis, unspecified; K21.9 Gastro-esophageal reflux disease without esophagitis; Z01.812 Encounter for preprocedural laboratory examination

== ENCOUNTER → 2018-08-12 08:19 | Outpatient (CLI) | payer MEDICARE, OTHER ==
[2018-07-31 07:31] VITALS: BMI 24.8
[~2018-08-12 08:19] MED LIST changes: +XARELTO20 MG PO
== END | disposition home or self-care (01) ==
LOC: D.RAD 08:19
PROVIDERS: ATTEND Internal Medicine Gastroenterology
DX: K44.9 Diaphragmatic hernia without obstruction or gangrene (principal)

== ENCOUNTER → 2019-02-15 09:00 | Outpatient (CLI) | payer MEDICARE, OTHER ==
[2018-07-31 07:31] VITALS: BMI 24.8
--- NOTE | 2019-02-17 09:45 | ST ---
PATIENT:RAISA JOYNER MEDICAL RECORD: [id number] SEX: M LOCATION:[facility] ORDER #: ADMISSION DATE: 02/15/19 AGE OF PATIENT: 78 REFERRING PHYSICIAN: INTERPRETING PHYSICIAN: SHABNAM WHITE MD DATE OF SERVICE: 02/15/2019 PROCEDURE: Nuclear stress test. INDICATIONS: Angina, coronary artery disease, shortness of breath. He was exercised on standard Lexiscan protocol with 33 mCi of sestamibi injected at peak stress, 11 mCi used previously for rest images. FINDINGS: Gated SPECT reveals a preserved ejection fraction greater than 70% with decreased wall motioning and thickening throughout the inferior segments. SPECT imaging: Cardiolite was used as myocardial perfusion agent. There is a fixed perfusion defect inferiorly. This includes the basal, mid, apical, inferior segments. There is no evidence of reversible ischemia and the remaining segments with homogeneous uptake at rest and stress. OVERALL IMPRESSION: This is a minimally abnormal nuclear stress test only showing a fixed perfusion defect inferiorly. No ongoing ischemia. Gated SPECT reveals preserved ejection fraction greater than 70%. TRANSINT:[id number] Voice Confirmation ID: [id number] DOCUMENT ID: [id number] SHABNAM WHITE MD at 0945 CC: LANIE CLEMENTE MD [id number] DICTATION DATE: 02/16/19 103 OCCUPATIONAL THERAPY ASSISTANT: 02/17/19 0058 DEP CLI 02/15/19 [facility] [address] [place] [address]
== END | disposition home or self-care (01) ==
LOC: D.HCCARDIO 09:00
PROVIDERS: ATTEND Internal Medicine Interventional Cardiology
DX: I25.10 Atherosclerotic heart disease of native coronary artery without angina pectoris (principal)

== ENCOUNTER 2019-09-10 16:14 | Emergency (ER) | payer MEDICARE, OTHER ==
[~2019-09-10] VITALS: Ht 175.3 cm; Wt 74.5 kg
[2019-09-10 16:15] VITALS: Ht 175.3 cm; Wt 74.5 kg
[2019-09-10 17:47] VITALS: BP 140/75
== END 2019-09-10 17:47 | disposition home or self-care (01) ==
LOC: D.ER 16:14
DX: S09.90XA Unspecified injury of head, initial encounter (principal); Z79.01 Long term (current) use of anticoagulants; I10 Essential (primary) hypertension; I48.91 Unspecified atrial fibrillation; E11.9 Type 2 diabetes mellitus without complications; Z86.73 Personal history of transient ischemic attack (TIA), and cerebral infarction without residual deficits; K21.9 Gastro-esophageal reflux disease without esophagitis; R51 Headache; Z79.84 Long term (current) use of oral hypoglycemic drugs; W19.XXXA Unspecified fall, initial encounter; Y93.9 Activity, unspecified; Y92.9 Unspecified place or not applicable